=== PATIENT | female | born 1985 | race Caucasian/White ===

== ENCOUNTER 2017-11-23 05:30 | Inpatient (IN) | payer OTHER, SELFPAY ==
[2017-11-20 12:00] VITALS: BMI 28.0
[2017-11-23] VITALS (14 sets, daily range): BP systolic 103–126; BP diastolic 54–78; PULSE 81–106; RESP 14–20; TEMP 36.3–37.4; O2SAT 95–98; BMI 28.0
[2017-11-23] MEDS: Lactated Ringers 1,000 ML 999 ML IV (06:30)
[2017-11-23 06:34] LABS: Hematocrit 37.8 % (37-47); Hemoglobin 13.1 g/dl (12.0-15.0); Mean Corp Hgb Conc 34.7 g/gl (32-36); Mean Corpuscular Hgb 31.8 pg (27.0-32.0); Mean Corpuscular Volume 91.7 fL (81-99); RBC Distribution Width CV 13.4 % (11.6-14.6); Red Blood Count 4.12 M/mm3 (4.2-5.4); White Blood Count 10.2 K/mm3 (4.4-11.0)
[2017-11-23 06:35] LABS: Basophil# 0.02 X10^3/uL; Basophil% 0.2 % (0-1); Eosinophil# 0.11 X10^3/uL; Eosinophils% 1.1 % (0-5); Lymphocyte % 20.6 % (19-41); Mean Platelet Vol. 10.4 fl (6.2-12.0); Monocyte# 0.85 X10^3/uL; Monocyte% 8.3 % (0-10); Neutrophil # 7.04 X10^3/uL (2.7-7.7); Neutrophil % 69.2 % (47-70); POSITIVE COUNT NO; POSITIVE DIFFERENTIAL NO; POSITIVE MORPHOLOGY NO; Platelet Count 196 K/mm3 (150-450); RBC Distribution Width SD 43.8 fl (35.1-43.9)
[2017-11-23] MEDS: Sodium Citrate/Citric Acid 30 ML UDC PO (07:12)
[2017-11-23] MEDS: Lactated Ringers 1,000 ML 150 ML IV (07:21)
[2017-11-23] MEDS: Cefazolin 2 GM in 0.9% Normal Saline 100 ML IV (07:22)
[2017-11-23] MEDS: Oxytocin 30 units/NS 500 ml 30 UNITS/500 ML IV.SOLN 167 UNITS IV (07:41)
--- NOTE | 2017-11-23 08:00 | PCM.OB.CSR ---
Delivery Classification: Scheduled Final CODY: 11/30/17 Final CODY Source: US <20 weeks Gestational age: 39 Weeks and 0 Days Indications: Patient with Chiari malformation- Scheduled repeat cs at 39 weeks with General anesthesia Indications for : Repeat Elective Description of Procedure: Surgeon: Dr. Willow Alberto Card Mounter: Dr. Emil Adams Second dental assistant medical assistant: CATHY Amos Procedure performed: Repeat section Anesthesia: General Preoperative diagnosis: Term gestation 39 weeks gestation for an elective repeat section Postoperative Diagnosis: same- live female Findings: Live female infant born without complication. Nuchal ?1 loose. clear meconium fluid. . Normal tubes and ovaries bilaterally. EBL: 600cc Implantable devices: None Operative note: After informed consent was obtained the patient was taken to the operating room sHe was placed in the supine position. She was then prepped and draped in normal sterile fashion and rincon catheter was placed. General anesthesia was then given. Next, skin incision was made with a scalpel in a Pfannenstiel fashion. It was carried down to the underlying layer of the fascia. Fascia was then incised midline with scapel and extended laterally using curved akhtar. 2 straight [place]'s were placed in the superior aspect of the fascial edge and the rectus muscles were dissected off sharply. Attention was then turned to the inferior aspect where again the fascial edge was grasped with 2 straight Shanti clamps tented up and the rectus muscle dissected off sharply. At this time the rectus muscles were seperated in the midline bluntly. Using blunt force the peritoneum was then entered. At this time the vesicouterine peritoneum was identified. Uterine incision was made in a low transverse fashion with the scalpel and then entered bluntly. Gentle opposing traction was placed to extend the uterine incision. The membranes were ruptured amniotic fluid clear. Infant's head was then brought to the uterine incision was delivered atraumatically followed by the rest infant's body. Cord was clamped and cut and mouth and nose were suctioned. was then handed to the waiting nursery team. The placenta was then removed with gentle traction. The uterus was removed from the intra-abdominal cavity is wrapped in a moist lap. He was cleared of all clots and debris using a moist lap. Ring clamps were placed on the uterine angles. #1 Vicryl suture was used in a running locked fashion for the first layer. Followed by second imbricating layer with #1 Vicryl. At this time then the uterus was placed back into abdominal cavity uterine incision was evaluated and noted to be of good hemostasis. Tubes and ovaries were evaluated they were normal. Great hemostasis was appreciated at this time the uterine incision was again evaluated good hemostasis was appreciated. Jessika was placed. The peritoneum was grasped with Kellys. Peritoneum was reapproximated using #2 Vicryl suture in a running fashion. Jessika was placed. The fascia was then reapproximated using #1 Vicryl in a running fashion. Subcutaneous layer was evaluated and Bovie was used for any small oozing that was noted per #2-0 plain gut suture was then used to reapproximate the subcutaneous layer and jessika was placed. 4-0 monocryl was used to reapproximate the skin in a subcutaneous fashion. Dry sterile dressing was applied. Instrument lap needle count were correct ?2. Anticipated normal postoperative course for this patient. Amniotic Membrane Rupture Type: Artificial Amniotic Fluid Description: Clear Placenta Disposition: [facility] Drain: Rincon to straight drain Cord Entanglement: Around neck x 1, loose Nuchal Cord Compression: Without compression Cord Vessel Description: 3 Vessels Esitmated Blood Loss (ml): 600 Gender: Female (1 minute): 8 (5 minute): 9 Delayed cord clamping: No Pre-op Antibiotic Given: Ancef 2 grams IV x1 Pt instructed on risks of surgery: Bleeding, Anesthesia Risks, Infection, Injury to surrounding structure(s) including bowel and bladder Complications: None - Admit VTE Documentation VTE Present on Admission: Yes VTE Mechan Device Prophylaxis: SCD's VTE Pharm Prophylaxis ordered?: No
--- NOTE | 2017-11-23 08:10 | OP.PCM_ITS ---
Delivery Classification: Scheduled Final CODY: 11/30/17 Final CODY Source: US <20 weeks Gestational age: 39 Weeks and 0 Days Indications: Patient with Chiari malformation- Scheduled repeat cs at 39 weeks with General anesthesia Indications for : Repeat Elective Description of Procedure: Surgeon: Dr. Willow Alberto Cup Trimming Machine Operator: Dr. Emil Adams Second care assistant: CATHY Amos Procedure performed: Repeat section Anesthesia: General Preoperative diagnosis: Term gestation 39 weeks gestation for an elective repeat section Postoperative Diagnosis: same- live female Findings: Live female infant born without complication. Nuchal ?1 loose. clear meconium fluid. . Normal tubes and ovaries bilaterally. EBL: 600cc Implantable devices: None Operative note: After informed consent was obtained the patient was taken to the operating room sHe was placed in the supine position. She was then prepped and draped in normal sterile fashion and rincon catheter was placed. General anesthesia was then given. Next, skin incision was made with a scalpel in a Pfannenstiel fashion. It was carried down to the underlying layer of the fascia. Fascia was then incised midline with scapel and extended laterally using curved akhtar. 2 straight [place]'s were placed in the superior aspect of the fascial edge and the rectus muscles were dissected off sharply. Attention was then turned to the inferior aspect where again the fascial edge was grasped with 2 straight Shanti clamps tented up and the rectus muscle dissected off sharply. At this time the rectus muscles were seperated in the midline bluntly. Using blunt force the peritoneum was then entered. At this time the vesicouterine peritoneum was identified. Uterine incision was made in a low transverse fashion with the scalpel and then entered bluntly. Gentle opposing traction was placed to extend the uterine incision. The membranes were ruptured amniotic fluid clear. Infant's head was then brought to the uterine incision was delivered atraumatically followed by the rest infant's body. Cord was clamped and cut and mouth and nose were suctioned. was then handed to the waiting nursery team. The placenta was then removed with gentle traction. The uterus was removed from the intra-abdominal cavity is wrapped in a moist lap. He was cleared of all clots and debris using a moist lap. Ring clamps were placed on the uterine angles. #1 Vicryl suture was used in a running locked fashion for the first layer. Followed by second imbricating layer with # 1 Vicryl. At this time then the uterus was placed back into abdominal cavity uterine incision was evaluated and noted to be of good hemostasis. Tubes and ovaries were evaluated they were normal. Great hemostasis was appreciated at this time the uterine incision was again evaluated good hemostasis was appreciated. Jessika was placed. The peritoneum was grasped with Kellys. Peritoneum was reapproximated using #2 Vicryl suture in a running fashion. Jessika was placed. The fascia was then reapproximated using #1 Vicryl in a running fashion. Subcutaneous layer was evaluated and Bovie was used for any small oozing that was noted per #2-0 plain gut suture was then used to reapproximate the subcutaneous layer and jessika was placed. 4-0 monocryl was used to reapproximate the skin in a subcutaneous fashion. Dry sterile dressing was applied. Instrument lap needle count were correct ?2. Anticipated normal postoperative course for this patient. Amniotic Membrane Rupture Type: Artificial Amniotic Fluid Description: Clear Placenta Disposition: [facility] Drain: Rincon to straight drain Cord Entanglement: Around neck x 1, loose Nuchal Cord Compression: Without compression Cord Vessel Description: 3 Vessels Esitmated Blood Loss (ml): 600 Infant Gender: Female (1 minute): 8 (5 minute): 9 Delayed cord clamping: No Pre-op Antibiotic Given: Ancef 2 grams IV x1 Pt instructed on risks of surgery: Bleeding, Anesthesia Risks, Infection, Injury to surrounding structure(s) including bowel and bladder Complications: None - Admit VTE Documentation VTE Present on Admission: Yes VTE Mechan Device Prophylaxis: SCD's VTE Pharm Prophylaxis ordered?: No
[2017-11-23] MEDS: Lactated Ringers 1,000 ML 100 ML IV (08:17)
[2017-11-23] MEDS: Ketorolac 30 MG/ML Syringe IV ×2 (13:59→19:51)
[2017-11-23] MEDS: 0.9% Saline Lock 10 ML Syringe IV (17:26)
[2017-11-23] MEDS: HYDROmorphone 1 MG/ML Syringe IV (17:34)
[2017-11-24] MEDS: oxyCODONE 5 MG Tablet PO ×3 (00:02→19:24)
[2017-11-24 00:05] VITALS: BP 108/47; PULSE 82; RESP 16; TEMP 37.2; O2SAT 96
[2017-11-24] MEDS: Ketorolac 30 MG/ML Syringe IV ×4 (02:14→20:15)
[2017-11-24 04:45] VITALS: BP 109/57; PULSE 92; RESP 16; TEMP 36.8; O2SAT 97
[2017-11-24] MEDS: 0.9% Saline Lock 10 ML Syringe IV ×4 (05:19→20:15)
[2017-11-24 06:06] LABS: Hematocrit 34.8 % (37-47); Hemoglobin 11.8 g/dl (12.0-15.0); Mean Corp Hgb Conc 33.9 g/gl (32-36); Mean Corpuscular Volume 91.3 fL (81-99); Mean Platelet Vol. 9.5 fl (6.2-12.0); Platelet Count 178 K/mm3 (150-450); RBC Distribution Width CV 13.6 % (11.6-14.6); RBC Distribution Width SD 44.8 fl (35.1-43.9); Red Blood Count 3.81 M/mm3 (4.2-5.4); White Blood Count 13.4 K/mm3 (4.4-11.0)
[2017-11-24 06:07] LABS: Scan Indicated on CBC? Y/N NO
[2017-11-24 07:50] VITALS: BP 117/53; PULSE 104; RESP 20; TEMP 36.9; O2SAT 97
--- NOTE | 2017-11-24 08:07 | PCM.PN.OB ---
Subjective: pt seen at bedside, doing well. pt reports good pain control. lochia mild. Breast feeding. Pt reports + flatus. Rincon catheter still in place. pt tolerating regular diet. denies N/V, CP, SOB, dizziness. - Physical Exam General: Alert, Oriented x3 Abdomen: Soft, Non-Distended, - - fundus firm. incision dressing dry and intact. Extremities: No Calf Tenderness Vital Signs Temp Pulse Resp BP Pulse Ox 98.3 F 92 16 109/57 L 97 11/24/17 04:45 11/24/17 04:45 11/24/17 04:45 11/24/17 04:45 11/24/17 04:45 Oxygen Delivery Method Room Air Weight: 81.3 kg Body Mass Index (BMI) 28.0 Intake and Output for Last 24 Hours 11/22/17 11/23/17 11/24/17 23:59 23:59 23:59 Intake Total 2613 / 2613 270 / 270 Output Total 3550 / 3550 1300 / 1300 Balance -937 / -937 -1030 / -1030 Laboratory Tests Past 24 Hrs 11/23/17 11/24/17 06:50 05:25 WBC 13.4 H RBC 3.81 L Hgb 11.8 L Hct 34.8 L MCV 91.3 MCH 31.0 MCHC 33.9 RDW 13.6 RDW Differential 44.8 H Plt Count 178 MPV 9.5 Blood Type AB POSITIVE Antibody Screen NEGATIVE Medical Necessity - Tobacco Use Smoking Status: Never smoker Assessment/Plan POD#1, doing well routine care pain mgmt dc rincon vs and labs reviewed- stable
--- NOTE | 2017-11-24 08:12 | DCINST_ITS ---
Discharge Diet: No Restrictions Discharge Activity: Return to Normal Activity, May Not Drive - for 2 weeks, May not drive while taking narcotic pain medications., May Shower, May Take a Tub Bath - in 7 days. May resume sexual activity in: 4-6 weeks Lifting Restrictions: 20 pounds Additional Activity Instructions:: Nothing in the vagina for 4-6 weeks. You may return to work/school in 6 weeks. Call your doctor if your incision/area has: Continuous Slow Oozing, Sudden Increased Bleeding, Increased Pain/ Swelling, Increased Redness, Foul Smelling Discharge Call your doctor if you observe: Fever of 101 or Higher, Using more than one pad per hour - for 2 hours Suture Line Care: Avoid Pulling/Pushing, Avoid Pinching/Bending Cleanse incision/area with: Keep Dressing Clean & Dry Additional Instructions: If you experience any of the following, contact your healthcare provider. * Bleeding that soaks a pad every hour for 2 hours * Fever 100.4 or higher * Unrelieved incision or abdominal pain * Swelling, redness, discharge or bleeding from your incision or episiotomy site * Your incision begins to separate * Problems urinating (including inability to urinate or burning while urinating) . * Visual changes * Severe headache * Flu-like symptoms * Pain or redness in one of both of your breasts * Pain, warmth, tenderness or swelling in your legs, especially the calf area * Frequent nausea and vomiting * Symptoms of depression or anxiety If you experience any of the following, call 911 or go to the nearest Emergency Room. * Chest pain * Problems breathing * Seizure activity * Partial or complete paralysis of a body part, slurred speech, weakness or drooping of the face, or a sudden inability to walk or hold your balance Allergies/Adverse Reactions: Allergies No Known Allergies Allergy (Verified 11/23/17 07:28) Medications to take at Discharge Vits [Prenatabs FA ] 1 tablet PO DAILY 01/06/15 Naproxen [Naprosyn] 250 - 500 mg PO Q8H PRN PRN #60 tab 11/24/17 Oxycodone HCl/Acetaminophen [Percocet 5/325] 1 tablet PO Q6H PRN PRN 7 Days #28 tablet 11/24/17 Senna/Docusate Sodium [Senokot-S] 1 tab PO DAILY PRN #30 tab 11/24/17 SimETHICONE [Mylicon] 80 mg PO PCHS PRN #30 tab 11/24/17 The following prescriptions were given: Oxycodone HCl/Acetaminophen [Percocet 5/325] 1 tablet PO Q6H PRN PRN 7 Days #28 tablet PRN Reason: Pain Naproxen [Naprosyn] 250 - 500 mg PO Q8H PRN PRN #60 tab PRN Reason: Mild Pain (-11/03) Senna/Docusate Sodium [Senokot-S] 1 tab PO DAILY PRN #30 tab PRN Reason: Constipation SimETHICONE [Mylicon] 80 mg PO PCHS PRN #30 tab PRN Reason: Indigestion/stomach pain Follow-Up: Call to make an appointment with your doctor for an incision check in 1-2 weeks. You will also need a 6 week post- follow up appointment. Please Follow Up With: Willow Alberto MD - Call to make an appointment for an incision check in 1-2 [phone] When: You will need a post- check in 6 weeks. Primary Care Physician: Wolf Garcia III, MD [Primary Care Provider] -
[2017-11-24] MEDS: BENZOCAINE/MENTHOL 1 LOZENGE MUCOUS MEM (12:42)
[2017-11-24] MEDS: Senna/Docusate Sodium 1 Tablet PO (14:29)
[2017-11-24 15:45] VITALS: BP 111/66; PULSE 75; RESP 18; TEMP 36.4; O2SAT 99
[2017-11-24 20:10] VITALS: BP 109/68; PULSE 85; RESP 18; TEMP 36.7; O2SAT 98
[2017-11-25] MEDS: Ketorolac 30 MG/ML Syringe IV (01:56)
[2017-11-25] MEDS: 0.9% Saline Lock 10 ML Syringe IV (01:56)
[2017-11-25 02:00] VITALS: BP 104/64; PULSE 85; RESP 16; TEMP 36.7
--- NOTE | 2017-11-25 06:58 | PCM.PN.OB ---
Subjective: pt seen at bedside, doing well. pt reports good pain control. Lochia mild. Breast feeding. No CP, SOB, dizziness. - Physical Exam General: Alert, Oriented x3 Abdomen: Soft, Non-Distended, Passing Flatus, - - fundus firm . incision site dry and intact Extremities: No Calf Tenderness Vital Signs Temp Pulse Resp BP Pulse Ox 98.0 F 85 16 104/64 98 11/25/17 02:00 11/25/17 02:00 11/25/17 02:00 11/25/17 02:00 11/24/17 20:10 Oxygen Delivery Method Room Air Weight: 81.3 kg Body Mass Index (BMI) 28.0 Intake and Output for Last 24 Hours 11/23/17 11/24/17 11/25/17 23:59 23:59 23:59 Intake Total 2613 / 2613 270 / 270 Output Total 3550 / 3550 2200 / 2200 Balance -937 / -937 -1930 / -1930 Medical Necessity - Tobacco Use Smoking Status: Never smoker Assessment/Plan POD#2, doign well routine care [facility]
--- NOTE | 2017-11-25 07:00 | PCM.DC.BLA ---
Discharge Summary Date of Admission: 11/23/17 Date of Discharge: 11/25/17 Summary: Pt admitted for repeat scheduled LTCS on 11/23/17. Pt had uncomplicated Post op course. Discharged home on POD#2 11/26/17.
[2017-11-25 09:15] VITALS: BP 102/66; PULSE 94; RESP 20; TEMP 37.1; O2SAT 98
[2017-11-25] MEDS: oxyCODONE 5 MG Tablet PO (09:17)
[2017-11-25] MEDS: Senna/Docusate Sodium 1 Tablet PO (09:17)
== END 2017-11-25 12:00 | disposition home or self-care (01) | DRG 765 ==
PROVIDERS: Admitting Provider Obstetrics & Gynecology; Family Provider Family Medicine; PCP Family Medicine; Visit Provider Obstetrics & Gynecology
DX: O34.219 Maternal care for unspecified type scar from previous cesarean delivery (principal); O99.354 Diseases of the nervous system complicating childbirth; G93.5 Compression of brain; O69.81X0 Labor and delivery complicated by cord around neck, without compression, not applicable or unspecified; O77.0 Labor and delivery complicated by meconium in amniotic fluid; J45.909 Unspecified asthma, uncomplicated; Z3A.39 39 weeks gestation of pregnancy; Z37.0 Single live birth
CPT/HCPCS: 85025; 85027; 86850; 86900; 99218; J7120; A4216; G0378; J2405

== ENCOUNTER → 2021-01-05 16:32 | Outpatient (CLI) | payer OTHER, SELFPAY | PROVIDERS: PCP Family Medicine; Referring Provider Obstetrics & Gynecology; Visit Provider Obstetrics & Gynecology | DX: Z03.818 Encounter for observation for suspected exposure to other biological agents ruled out (principal) | CPT/HCPCS: 87635; C9803; U0002 ==

== ENCOUNTER 2021-01-10 05:15 | Inpatient (IN) | payer OTHER, SELFPAY ==
[2017-11-23 06:30] VITALS: BMI 28.0
--- NOTE | 2021-01-05 14:15 | PCM.HP.BLA ---
History and Physical Date of Admission: 01/10/21 HPI: The patient is a 35 year old female presenting for pre-operative visit. She is scheduled for , for 39 weeks , previous c/s on 01/10/21. Procedure discussed along with risks, benefits and complications. Other alternatives discussed for management. Consent form signed? Yes. ? ? PAST MEDICAL HISTORY PAST MEDICAL HISTORY Diagnosis Date ? Allergic rhinitis, cause unspecified ? ? Asthma ? ? athletic childhood asthma ? Chiari I malformation (HCC) 05/08/14 ? Chlamydia 2010 ? Enlarged pituitary gland (HCC) 04/17/2014 ? Unspecified asthma(493.90) ? ? ? PAST SURGICAL HISTORY PAST SURGICAL HISTORY Procedure Laterality Date ? ANESTH, SECTION ? ? ? DELIVERY ONLY ? 03/09/15 ? Primary C/S for Chiari I Malformation ? DELIVERY ONLY ? 11/23/2017 ? ? ? CURRENT MEDICATIONS Current Outpatient Medications Medication Sig Dispense Refill ? PNV no.95/ferrous fum/folic ac ( ORAL) Take by mouth. ? ? ? No current facility-administered medications for this visit. ? ? ALLERGIES: Cats and Dogs ? PERSONAL HISTORY: SOCIAL HISTORY Social History ? Tobacco Use ? Smoking status: Never Smoker ? Smokeless tobacco: Never Used Vaping Use ? Vaping Use: Never used Substance Use Topics ? Alcohol use: Yes ? ? Comment: socially, not while ? Drug use: No ? FAMILY HISTORY: FAMILY HISTORY FAMILY HISTORY Adopted: Yes Problem Relation Age of Onset ? Hypertension Mother ? ? Heart Father ? ? atrial fib ? Breast Cancer Maternal Grandmother ? ? Heart Maternal Grandmother ? ? Hypertension Maternal Grandfather ? ? Heart Paternal Grandmother ? ? Hypertension Paternal Grandmother ? ? other (Celina Gehrig disease) Paternal Grandfather ? ? other (MS) Paternal Aunt ? ? other (MS) Paternal Uncle ? ? ? REVIEW OF SYMPTOMS: GENERAL: denies fevers or chills ENDOCRINOLOGY: has not been on steroids Cardiology : denies palpitations or chest pain Respiratory: denies SOB or cough Hematology: denies history of prolonged bleeding or easy bruising or VTE Allergy: Denies history of personal or family history of allergy to anesthesia ? PHYSICAL EXAMINATION: ? VITALS: Last menstrual period 04/11/2020. ? GENERAL: The patient is well nourished, well hydrated in no acute distress. , The patient is oriented to time, place, and person. NECK: Supple. No lynphadenopathy, normal thyroid, no thyromegaly. LUNGS: Clear to auscultation bilaterally. no wheezes, rhonchi or rales HEART: Regular rate and rhythm, Normal heart sounds and No murmurs or gallops abd- soft, nontender, gravid ? IMPRESSION: .Estimated Date of Delivery: 01/16/21 for repeat c/s ? PLAN: The risks/benefits/alternatives and personal involved for the planned repeat c/s were reviewed with the patient. Her questions were answered to her satisfaction and she desires to proceed. Consent was signed. I reviewed with her postop instructions and expectations. ? ? I have reviewed and updated past medical and surgical history, medications and allergies This H&P was completed in my office on Assessment & Plan Assessment/Plan (1) Previous delivery affecting : (2) with 39 completed weeks gestation:
[2021-01-10] VITALS (18 sets, daily range): BP systolic 101–123; BP diastolic 48–73; PULSE 72–107; RESP 16–18; TEMP 36.2–36.8; O2SAT 96–99; BMI 30.7
[2021-01-10] MEDS: Lactated Ringers 1,000 ML 999 ML IV (05:40)
[2021-01-10] MEDS: Acetaminophen 500 MG Tablet 1000 MG PO ×3 (05:48→19:42)
[2021-01-10 06:03] LABS: Absolute Lymphocyte Count 1.82 X10^3/uL (0.83-4.51); Absolute Neutrophil Count 6.1 X10^3/uL (2.0-7.7); Basophil# 0.03 X10^3/uL; Basophil% 0.3 % (0-1); Eosinophils% 1.2 % (0-5); Hematocrit 38.3 % (37-47); Hemoglobin 12.7 g/dL (12.0-15.0); Lymphocyte # 1.82 X10^3/ul (0.83-4.51); Lymphocyte % 21.1 % (19-41); Mean Corp Hgb Conc 33.2 g/dL (32-36); Mean Corpuscular Volume 90.5 fL (81-99); Mean Platelet Vol. 9.9 fl (6.2-12.0); Monocyte# 0.55 X10^3/uL; Monocyte% 6.4 % (0-10); NRBC Flagged by Analyzer 0 % (0-5); Neutrophil # 6.06 X10^3/uL (2.7-7.7); Neutrophil % 70.2 % (47-70); Platelet Count 200 K/mm3 (150-450); RBC Distribution Width CV 13.5 % (11.6-14.6); RBC Distribution Width SD 44.2 fl (35.1-43.9); Red Blood Count 4.23 M/mm3 (4.2-5.4); White Blood Count 8.6 K/mm3 (4.4-11.0)
[2021-01-10] MEDS: Sodium Citrate/Citric Acid 30 ML UDC PO (06:41)
[2021-01-10] MEDS: Lactated Ringers 1,000 ML 150 ML IV (06:41)
[2021-01-10] MEDS: Cefazolin 2 GM in 0.9% Normal Saline 100 ML IV (07:20)
--- NOTE | 2021-01-10 08:10 | OP.PCM_ITS ---
Assessment & Plan (1) delivery delivered: (2) Single live : (3) with 39 completed weeks gestation: Maternal Data Information Final CODY: 01/16/21 Final CODY Source: US <20 weeks Gestational age: 39 09/02 Details Operative Information Date of Procedure: 01/10/21 Pre-Operative Diagnosis: previous c/s, maternal chiari malformation, 39 weeks Post-Operative Diagnosis: same Classification: Scheduled Procedure Type: low transverse legal paraprofessional #1: Alma Rosa Bruno Type of Anesthesia: General Anesthesiologist: Patel Urrutia Special Medications: none Antibiotic Given: Ancef 2 grams IV x1 Drain: Combs to straight drain Estimated Blood Loss: 700 Fluids Replaced: 1200 Procedure Start Time: 07:36 Procedure Stop Time: 08:08 Time of Delivery: 07:38 Findings Description of Procedure: The patient was taken to the operating room. She was prepped and draped in the dorsal supine position with a leftward tilt. A P fannenstiel skin incision was made approximately 2 cm above the symphysis pubis and carried through to underlying layer fascia with the scalpel. The fascia was incised incised in the midline and extended laterally with the Woo scissors. The fascia was dissected off the rectus muscles with blunt and sharp dissection. The rectus muscles were in the midline and the peritoneum was entered bluntly. The peritoneal incision was stretched and the bladder blade was placed. The uterine incision was made in a low transverse fashion with the scalpel and extended superiorly and inferiorly with blunt dissection. The amniotic membranes were ruptured bluntly and clear amniotic fluid returned. The infant's head was brought to the incision in the flexed position and delivered without difficulty. The remainder of the was delivered with gentle traction and fundal pressure in the standard fashion. The mouth and nares were bulb suctioned. The cord was clamped and cut as the infant was stimulated. Cord clamping was delayed. The infant was handed off to the waiting nursing staff. The placenta was delivered with fundal massage and gentle traction in the standard fashion. The uterus was exteriorized and cleared of all clots and debris. The cervix was dilated with a ring forcep. The uterine incision was closed with #1 Vicryl in a running locked fashion. A second layer of the same suture was used in an imbricating fashion. The incision was examined and was found to be hemostatic. The uterus was placed back into the peritoneal cavity and hemostasis was again confirmed. The rectus muscles were examined and any bleeding was Bovie cauterized. The parietal peritoneum and rectus muscles were closed en bloc with an 0 Vicryl running suture. The surgical teams outer gloves were then changed. The rectus fascia was examined and any bleeding was Bovie cauterized and the rectus fascia was closed with 1 Vicryl suture in a running standard fashion. The subcutaneous tissue was examining and any bleeding was Bovie cauterized. The skin was closed in a subcuticular fashion by the VICTIM ADVOCATE with me present in the labor and delivery suite. I performed the remainder of the procedure with assistance. All sponge, lap, and needle counts were correct. The patient was taken to her room for recovery in a stable condition. Presentation: Positive for Vertex Amniotic Membrane Rupture Type: Spontaneous Amniotic Fluid Description: Clear Placental Delivery Description: Spontaneous Cord Vessel Description: 3 Vessels Cord Entanglement: None Infant A Gender: Female (Mer[place]) (1 minute): 8 (5 minute): 9 Delayed Cord Clamping: Yes Complications Complications: none Admit VTE Documentation VTE Present on Admission: No VTE Mechan Device Prophylaxis: SCD's VTE Pharm Prophylaxis Ordered: No Reason Prophylaxis Not Ordered: Procedure Not Indicated
[2021-01-10] MEDS: Ketorolac 30 MG/ML Syringe IV ×3 (08:35→21:34)
[2021-01-10] MEDS: Oxytocin 30 units/NS 500 ml 30 UNITS/500 ML IV.SOLN 167 UNITS IV (08:35)
[2021-01-10] MEDS: Lactated Ringers 1,000 ML 100 ML IV (11:50)
[2021-01-10] MEDS: 0.9% Saline Lock 10 ML Syringe IV ×2 (19:42→21:33)
[2021-01-11] MEDS: Acetaminophen 500 MG Tablet 1000 MG PO ×3 (01:52→14:05)
[2021-01-11] MEDS: Ketorolac 30 MG/ML Syringe IV (03:42)
[2021-01-11] MEDS: 0.9% Saline Lock 10 ML Syringe IV (03:43)
[2021-01-11 03:53] VITALS: BP 109/55; PULSE 84; RESP 16; TEMP 36.4
[2021-01-11 06:09] LABS: Hematocrit 32.5 % (37-47); Hemoglobin 10.9 g/dL (12.0-15.0); Mean Corp Hgb Conc 33.5 g/dL (32-36); Mean Corpuscular Hgb 30.8 pg (27.0-32.0); Mean Corpuscular Volume 91.8 fL (81-99); Mean Platelet Vol. 9.6 fl (6.2-12.0); Platelet Count 164 K/mm3 (150-450); RBC Distribution Width CV 13.6 % (11.6-14.6); RBC Distribution Width SD 45.7 fl (35.1-43.9); Red Blood Count 3.54 M/mm3 (4.2-5.4); White Blood Count 10.6 K/mm3 (4.4-11.0)
[2021-01-11] MEDS: Senna/Docusate Sodium 1 Tablet PO (07:59)
--- NOTE | 2021-01-11 08:59 | PCM.PN.OB ---
Subjective Subjective patient seen at bedside, doing well. Patient reports good pain control. lochia mild. voiding without difficutly. tolerating regular diet. Objective Data Objective Data Vital Signs: Vital Signs Temp Pulse Resp BP Pulse Ox 97.5 F L 84 16 109/55 L 99 01/11/21 03:53 01/11/21 03:53 01/11/21 03:53 01/11/21 03:53 01/10/21 17:48 Oxygen Delivery Method Room Air Weight: 86.183 kg Body Mass Index (BMI) 30.7 Intake & Output: Intake and Output for Last 24 Hours 01/09/21 01/10/21 01/11/21 23:59 23:59 23:59 Intake Total 4194 / 4194 800 / 800 Output Total 800 / 800 2400 / 2400 Balance 3394 / 3394 -1600 / -1600 Lab / Micro Data Result Diagrams: 01/11/21 06:00 Labs: Laboratory Results - last 24 hr 01/11/21 06:00 WBC 10.6 RBC 3.54 L Hgb 10.9 L Hct 32.5 L MCV 91.8 MCH 30.8 MCHC 33.5 RDW Std Deviation 45.7 H RDW Coeff of Chris 13.6 Plt Count 164 MPV 9.6 Assessment & Plan (1) delivery delivered: PLAN: POD#1 , Doing well Routine care pain mgmt monitor VS ambulation
[2021-01-11 10:23] VITALS: BP 119/70; PULSE 96; RESP 16; TEMP 36.8; O2SAT 96
[2021-01-11] MEDS: oxyCODONE 5 MG Tablet PO (10:35)
[2021-01-11 14:00] VITALS: BP 111/63; PULSE 73; RESP 16; TEMP 36.3; O2SAT 97
--- NOTE | 2021-01-11 15:12 | PCM.DC ---
Discharge Instructions Diet Discharge Diet: No restrictions Activity Discharge Activity: May not drive while taking narcotic pain medications. and May Shower May resume sexual activity in: 6-8 weeks Lifting Restrictions: 25 Dressing / Incision Call your doctor if your incision/area has: Continuous Slow Oozing, Sudden Increased Bleeding, Increased Pain/ Swelling, Increased Redness, Foul Smelling Discharge and Swelling at the incision site Call your doctor if you observe: Fever of 101 or Higher, Inability to urinate, Using more than one pad per hour and Uncontrolled pain Additional Dressing/Incision Instructions:: remove dressing at 7 days post op- if it becomes saturated prior to that time you may remove it. Let soap and water run over incision sites and dab dry. keep incision clean and dry. Follow Up Care Please Follow Up With: Willow Alberto MD When: 1-2 weeks post of incision check and again at 6 weeks post . [phone] Test Results: Test results from this visit will be discussed in further detail at your follow-up appointment, if applicable. Discharge Plan Admission Admit Date/Time: 01/10/21 05:15 Attending Provider: Olga Tejeda Primary Care Provider: Wolf Garcia III Instructions Forms: Information Discharge Orders/Prescriptions Prescriptions: New acetaminophen 500 mg Tablet 1,000 mg PO Q6 Qty: 60 RF: 0 naproxen 500 mg Tablet 500 mg PO Q8H Qty: 60 RF: 0 simethicone [Mi-Acid Gas Relief(simethicon)] 80 mg Tablet,Chewable 80 mg PO PCHS PRN (Reason: Indigestion/stomach pain) Qty: 20 RF: 0 oxycodone 5 mg Tablet 5 - 10 mg PO 4X/DAY PRN PRN (Reason: Pain Score 4-10) 5 Days Qty: 10 RF: 0 Continued Prenatabs FA 1 TABLET tablet 1 tab PO DAILY RF: 0 Referrals / Follow Up: Wolf Garcia III, MD [Primary Care Provider] -
[2021-01-11] MEDS: Naproxen 250 MG Tablet 500 MG PO (17:00)
== END 2021-01-11 17:30 | disposition home or self-care (01) | DRG 788 ==
PROVIDERS: Admitting Provider Obstetrics & Gynecology; PCP Family Medicine; Visit Provider Obstetrics & Gynecology
PROC: 10D00Z1 Extraction of Products of Conception, Low, Open Approach (ICD-10-PCS; CPT 59514; principal; 2021-01-10 07:15)
DX: O34.211 Maternal care for low transverse scar from previous cesarean delivery (principal); O99.52 Diseases of the respiratory system complicating childbirth; J45.909 Unspecified asthma, uncomplicated; Z3A.39 39 weeks gestation of pregnancy; Z37.0 Single live birth
CPT/HCPCS: 85025; 85027; 86850; 86900; 86901; 99218; J7120; A4216; G0378; J2405

== ENCOUNTER → 2025-02-10 | Outpatient (CLI) | payer OTHER, SELFPAY ==
--- OUTSIDE RECORDS SUMMARY | 2025-02-10 07:42 | XMS RPT_ITS | CCD ---
Author Organization [facility] Inform ion Partnership [facility] Care Team Providers Care Credit Rating Inspector Name Role Phone Cee Guerra MD Primary Care Provider Abhishek Charles Attending Unavailable Guerita MOLD WASHER, Zafar Colon Attending Unavailable Cee Guerra MD Primary Care Provider T[place]hof SOCIAL SERVICE DIRECTOR.Felicita ALFREDO Unavailable Chi SOCIAL SERVICE DIRECTOR.Miguel ALFREDO Unavailable [phone] AYLA ALVES Attending Unavailable CEE GUERRA Primary Care Unavailable SAMUEL HART Attending Unavailable SELF Referring Unavailable CEE GUERRA Primary Care Unavailable NARCISA MORALES Attending Unavailable CEE GUERRA Primary Care Unavailable CEE GUERRA Referring Unavailable CEE GUERRA Primary Care Unavailable FELICITA VIRGEN Attending Unavailabl CEE [place] Primary Care Unavailable Param SOCIAL SERVICE DIRECTOR.Felicita ALFREDO Unavailable Allergies Allergy Classification Reported Allergen(s) Allergy Type Date of Onset Reaction(s) Facility (14 sources) Cat; Translations: [CATS] Propensity to adverse reactions 07-19-[address] [facility] (14 sources) Dog; Translations: [DOGS] Propensity to adverse reactions 07-19-[address] [facility] Medications Current Medications Medication Drug Class(es) Dates Sig (Normalized) Sig (Original) Ethinyl Estradiol / norgestimate (18 sources) Progestin, Estrogen Start: 05-23-2024 take 1 tablet by mouth once daily norgestimate 0.25 mg-ethinyl estradiol 35 mcg 0.25-35 mg-mcg per tablet Indications: Surveillance for control, oral contraceptives Take 1 tablet by mouth once daily. 84 tablet 3 05/23/2024 Active Start: 05-09-2024 End: 05-23-2024 take 1 tablet by mouth once daily norgestimate 0.25 mg-ethinyl estradiol 35 mcg 0.25-35 mg-mcg per tablet Indications: Surveillance for control, oral contraceptives Take 1 tablet by mouth once daily. 84 tablet 05/09/2024 05/23/2024 Discontinued Start: 05-09-2024 take 1 tablet by ronaldo th once daily norgestimate 0.25 mg-ethinyl estradiol 35 mcg 0.25-35 mg-mcg per tablet Indications: Surveillance for control, oral contraceptives Take 1 tablet by mouth once daily. 84 tablet 05/09/2024 Active Start: 04-13-2023 End: 05-09-2024 take 1 tablet by mouth once daily norgestimate 0.25 mg-ethinyl estradiol 35 mcg 0.25-35 mg-mcg per tablet Indications: Surveillance for control, oral contraceptives Take 1 tablet by mouth once daily. 84 tablet 3 04/13/2023 05/09/2024 Discontinued Start: 04-13-2023 take 1 tablet by ronaldo th once daily norgestimate 0.25 mg-ethinyl estradiol 35 mcg 0.25-35 mg-mcg per tablet Indications: Surveillance for control, oral contraceptives Take 1 tablet by mouth once daily. 84 tablet 3 04/13/2023 Active Start: 03-20-2023 End: 04-13-2023 take 1 tablet by mouth once daily norgestimate 0.25 mg-ethinyl estradiol 35 mcg 0.25-35 mg-mcg per tablet Take 1 tablet by mouth once daily. 84 tablet 0 03/20/2023 04/13/2023 Discontinued Start: 03-20-2023 take 1 tablet by ronaldo th once daily norgestimate 0.25 mg-ethinyl estradiol 35 mcg 0.25-35 mg-mcg per tablet Take 1 tablet by mouth once daily. 84 tablet 0 03/20/2023 Active Start: 12-25-2022 End: 03-20-2023 take 1 tablet by mouth once daily norgestimate 0.25 mg-ethinyl estradiol 35 mcg 0.25-35 mg-mcg per tablet take 1 tablet by mouth once daily 84 tablet 0 12/25/2022 03/20/2023 Discontinued Start: 10-02-2022 take 1 tablet by ronaldo th once daily norgestimate 0.25 mg-ethinyl estradiol 35 mcg (SPRINTEC, ORTHO-CYCLEN) 0.25-35 mg-mcg per tablet take 1 tablet by mouth once daily 84 tablet 0 10/02/2022 Active Start: 07-10-2022 End: 10-02-2022 take 1 tablet by mouth once daily norgestimate 0.25 mg-ethinyl estradiol 35 mcg (SPRINTEC, ORTHO-CYCLEN) 0.25-35 mg-mcg per tablet take 1 tablet by mouth once daily 84 tablet 0 07/10/2022 10/02/2022 Discontinued Comment on above: take 1 tablet by ronaldo th once daily Take 1 tablet by ronaldo th once daily. sertraline 25 mg oral tablet (4 sources) Serotonin Reuptake Inhibitor Start: 11-01-19 take 1 tablet by mouth once daily sertraline (ZOLOFT) 25 mg tablet Indications: Anxiety with depression Take 1 tablet by mouth once daily. 30 tablet 1 10/31/2024 Active traZODone hydrochloride 50 mg oral tablet (4 sources) Serotonin Reuptake Inhibitor Start: 11-01-19 take 1 tablet by mouth once daily at bedtime traZODone (DESYREL) 50 mg tablet Indications: Anxiety with depression Take 1 tablet by mouth daily at bedtime. 30 tablet 1 10/31/2024 Active valACYclovir 1000 mg oral tablet (2 sources) Herpesvirus Nucleoside Analog DNA Polymerase Inhibitor, Herpes Simplex Virus Nucleoside Analog DNA Polymerase Inhibitor, Herpes Zoster Virus Nucleoside Analog DNA Polymerase Inhibitor Start: 05-09-20 End: 05-16-20 24 take 1 tablet by mouth three times daily valACYclovir (VALTREX) 1 gram tablet Take 1 tablet by mouth three times a day for 7 days. 21 tablet 05/09/2024 05/16/2024 Active Completed/Discontinued Medications Medication Drug Class(es) Dates Sig (Normalized) Sig (Original) PNV no.95/ferrous fum/folic ac ( ORAL) (4 sources) End: 04-13-2023 PNV no.95/ferrous fum/folic ac ( ORAL) Take by mouth. 0 04/13/2023 Discontinued PNV no.95/ferrou s fum/folic ac ( ORAL) Take by mouth. 0 Active Comment on above: Take by mouth. Problems Active Problems Problem Classification Problem Date Documented Date Episodic/Chronic Anxiety disorders (2 sources) Mixed anxiety and depressive disorder; Translations: [Other specified anxiety disorders] Onset: 10-31-2024 10-31-2024 Chronic Cardiac dysrhythmias (2 sources) Supraventricular tachycardia; Translations: [SVT (supraventricular tachycardia) (HCC)] 01-28-2025 Chronic Immunizations and screening for infectious disease (6 sources) Patient encounter status; Translations: [Encounter for screening for human papillomavirus (HPV)] Onset: 12-22-2024 04-13-2023 Episodic Other endocrine disorders (13 sources) Pituitary gland enlarged; Translations: [Other disorders of pituitary gland] Onset: 04-17-2014 03-10-2015 Chronic Other female genital disorders (1 source) Vaginal discharge; Translations: [Other specified noninflammatory disorders of vagina] 02-02-2025 Episodic Other female genital disorders (1 source) Other specified noninflammatory disorders of vagina; Translations: [Vaginal discharge] Onset: 02-02-2025 Episodic Other nervous system disorders (13 sources) Chiari malformation type I; Translations: [Compression of brain] Onset: 07-30-2014 04-02-2017 Chronic Other upper respiratory infections (1 source) Streptococcal pharyngitis; Translations: [Streptococcal pharyngitis] Onset: 01-09-2024 Episodic Past or Other Problems Problem Classification Problem Date Documented Date Episodic/Chronic Asthma (9 sources) Unspecified asthma, uncomplicated; Translations: [Asthma, unspecified type, unspecified] Resolved: 04-21-2015 04-21-2015 Chronic Bacterial infection; unspecified site (9 sources) Bacteria present; Translations: [Streptococcus, group B, as the cause of diseases classified elsewhere] Onset: 12-20-2020 Resolved: 01-17-2021 01-17-2021 Episodic Cardiac dysrhythmias (4 sources) Palpitations; Translations: [Palpitations] Onset: 10-25-2024 10-17-2024 Episodic Contraceptive and procreative management (5 sources) Oral contraception; Translations: [Encounter for surveillance of contraceptive pills] Onset: 05-23-2024 04-13-2023 Episodic Other complications of (9 sources) Group B Streptococcus carrier; Translations: [Streptococcus B carrier state complicating ] Onset: 05-01-2017 Resolved: 01-01-2018 01-01-2018 Episodic Other complications of (9 sources) Rubella non-immune; Translations: [Supervision of other high risk pregnancies, unspecified trimester] Onset: 08-17-2017 Resolved: 01-01-2018 01-01-2018 Episodic Other and delivery including normal (9 sources) Normal in primigravida; Translations: [Encounter for supervision of normal first , unspecified trimester] Onset: 07-30-2014 Resolved: 04-21-2015 04-21-2015 Episodic Other screening for suspected conditions (not mental disorders or infectious disease) (1 source) Encounter for screening for lipoid disorders; Translations: [Screening for lipid disorders] Onset: 10-25-2024 Episodic Other upper respiratory disease (9 sources) Allergic rhinitis; Translations: [Allergic rhinitis, unspecified] Resolved: 04-21-2015 04-21-2015 Chronic Screening and history of mental health and substance abuse codes (2 sources) Encounter for screening for depression; Translations: [Encounter for screening examination for other mental health and behavioral disorders] Onset: 10-31-2024 Episodic Results Test Name Value Interpretation Reference Range Facil ity BACTERIAL VAGINOSIS NAATon 0 02-02-2025 Interpretation and review of laboratory results Normal [facility] Lactobacillus crispatus+gasseri+je nsenii + Gardnerella vaginalis + Atopobium vaginae rRNA OTILIA+probe Ql (Vag fld) Not detected Not detected [facility] Lactobacillus crispatus+gasseri+je nsenii + Gardnerella vaginalis + Atopobium vaginae rRNA OTILIA+probe Ql (Vag fld) Not detected Normal Not detected [facility] Comment on above: Order Comment: Speci men Type: BLOOD SPECIMEN Ordering Facility: [facility] Address: [address] [place] [address] Performed By: #### 2 4331-1, 81096-8, 3016-3 #### [facility] CLIA [id number] [address] [place] [address] [place] [address] [place] ESTRELLA/TRICHOMONAS NAATon 0 02-02-2025 C. glabrata RNA OTILIA+probe Ql (Vag fld) Not detected Not detected [facility] Estrella sp DNA OTILIA+probe Ql (Vag fld) Detected Abnormal Not detected [facility] Comment on above: The Estrella species group target includes C. albicans, C. tropicalis, C. parapsilosis, and C. dubliniensis. Interpretation and review of laboratory results Abnormal [facility] T. vaginalis DNA OTILIA+probe Ql (Unsp spec) Not detected Not detected [facility] C. glabrata RNA OTILIA+probe Ql (Vag fld) Not detected Normal Not detected [facility] Comment on above: Order Comment: Speci men Type: BLOOD SPECIMEN Ordering Facility: [facility] Address: [address] [place] [address] Performed By: #### 2 4331-1, 36517-6, 3 #### [facility] CLIA [id number] [address] [place] [address] [place] Estrella sp DNA OTILIA+probe Ql (Vag fld) Detected Abnormal Not detected [facility] Comment on above: Order Comment: Speci men Type: BLOOD SPECIMEN Ordering Facility: [facility] Address: [address] [place] [address] Result Comment: The Estrella species group target includes C. albicans, C. tropicalis, C. parapsilosis, and C. dubliniensis. Performed By: #### 2 4331-1, 99856-3, 3 #### [facility] CLIA [id number] [address] [place] [address] [place] T. vaginalis DNA OTILIA+probe Ql (Unsp spec) Not detected Normal Not detected [facility] Comment on above: Order Comment: Speci men Type: BLOOD SPECIMEN Ordering Facility: [facility] Address: [address] [place] [address] Performed By: #### 2 4331-1, 69819-6, 3 #### [facility] CLIA [id number] [address] [place], [place] [id number] [place] CNOVon 02-02-2025 CNOV Office Visit (OBGYWM ) MALIHA IBARRA ([id number]) 1985 F NFR Date Time Provider Department 02/02/25 11:10 AM SAMUEL HART [place] During your visit today, we recorded the following information about you: Blood pressure Weight Last Period 100 63.2 kg 01/17/25 Samuel Hart MD 02/02/2025 11:51 AM Signed Batch And Furnace Manager offered: Patient declines. Maliha Ibarra is a 39 year old female who presents for problem visit - vaginal discharge. HPI: Vaginal discharge and itching for several days. Used Monistat 1 day with some relief in her symptoms, but symptoms have since returned. Sexually active. She has no concerns regarding STD. No other GI or symptoms. OB History Gravida3 Para3 Term3 Preterm0 AB0 Living3 SAB0 IAB0 Ectopic0 Multiple0 Live Births3 Senior Data Integration Developer History LMP: 01/17/2025 (Within Days), Having periods Age at Menarche: Age at First : Age at Menopause: Senior Data Integration Developer History Comments: Sexual Activity: Yes; Male Contraception: Pill PAST MEDICAL HISTORY Diagnosis Date Allergic rhinitis, cause unspecified Asthma ([facility]) athletic childhood asthma Chiari I malformation ([facility]) 05/08/14 Chlamydia 2010 Enlarged pituitary gland ([facility]) 04/17/2014 Unspecified asthma(493.90) PAST SURGICAL HISTORY Procedure Laterality Date ANESTH, SECTION DELIVERY ONLY 03/09/2015 Primary C/S for Chiari I Malformation DELIVERY ONLY 11/23/2017 DELIVERY ONLY 01/10/2021 LTCS TOOTH EXTRACTION Braddock teeth x four FAMILY HISTORY Adopted: Yes Problem Relation Age of Onset Hypertension Mother Heart Father atrial fib Breast Cancer Maternal Grandmother Heart Maternal Grandmother Hypertension Maternal Grandfather Heart Paternal Grandmother Hypertension Paternal Grandmother other (Celina Gehrig disease) Paternal Grandfather other (MS) Paternal Aunt other (MS) Paternal Uncle Social History Tobacco Use Smoking status: Never Smokeless tobacco: Never Vaping Use Vaping status: Never Used Substance Use Topics Alcohol use: Yes Comment: socially Drug use: Never Current Outpatient Medications Medication Sig sertraline (ZOLOFT) 25 mg tablet Take 1 tablet by mouth once daily. traZODone (DESYREL) 50 mg tablet Take 1 tablet by mouth daily at bedtime. norgestimate 0.25 mg-ethinyl estradiol 35 mcg 0.25-35 mg-mcg per tablet Take 1 tablet by mouth once daily. No current facility-administered medications for this visit. Allergies As of Date: 02/02/2025 Allergen Noted Reaction CATS 07/19/2005 DOGS 07/19/2005 Fully Assessed 02/02/2025 REVIEW OF SYSTEMS Expanded ROS: No fevers, chills, pelvic pain, nausea, vomiting. Allergies and current medication updated:Yes SENSITIVE EXAM: The sensitive examination was discussed with the Patient or Patient's Authorized Development Technical Lead. As applicable, any other physician, advance practice provider, medical student, or other health professional student that will be observing or involved in the sensitive examination for educational or training purposes was discussed with the Patient or Authorized Development Technical Lead. The Patient or Authorized Development Technical Lead has agreed to proceed with the sensitive examination. (Sensitive examination includes inspection and/or palpation of the breasts, pelvis, prostate and anorectal regions). EXAM: BP 100/68 Wt 139 lb 6.4 oz (63.2kg) LMP 01/17/2025 GENERAL: pleasant, female in no apparent distress HEENT: Normocephalic and atraumatic NECK: full range of motion CHEST: Normal inspiratory effort ABDOMEN: soft and non-tender PELVIC: external genitalia normal, normal Bartholin's glands, urethra, Blum[place]ard Colony's glands, no vulvar lesions, no cervical lesions, good vaginal support, physiologic discharge present, normal appearing perineal body and perianal region, non tender NEURO: exam grossly non-focal EXTREMITIES: normal ASSESSMENT AND PLAN: Assessment AND Plan Vaginal discharge Orders: BACTERIAL VAGINOSIS NAAT ESTRELLA/TRICHOMONAS NAAT Check BV, yeast. Reviewed vulvar care and hygiene measures. Patient desires Diflucan if yeast infection. Samuel Hart DO Medical Decision Making: Problems: Low: Acute, uncomplicated illness or injury Data: Unique test(s) ordered: 2 Medical Decision Making Level: 3 - Low Samuel Hart MD 02/02/2025 11:51 AM Signed Minimizing irritation of the vulva (area around the vagina) Wear white cotton underwear. Avoid synthetic fabrics and tight clothing. Sleep wearing shorts or pajama bottoms without underwear. Shower as soon as possible after exercise. Avoid clothing detergents and soaps with perfumes or dyes. Use warm (not hot) water to wash the vulva and if you use soap use a product designed for sensitive skin (like Dove or Cetaphil). Do not douche or use creams/powders in the vulvar area unless instructed by your physician. If you m (more content not included)... Normal [facility] BACTERIAL VAGINOSIS NAATon 0 12-22-2024 Lactobacillus crispatus+gasseri+je nsenii + Gardnerella vaginalis + Atopobium vaginae rRNA OTILIA+probe Ql (Vag fld) Not detected Normal Not detected [facility] Comment on above: Order Comment: Speci men Type: BLOOD SPECIMEN Ordering Facility: [facility] Address: [address] [place] [address] Performed By: #### 2 4331-1, 24616-4, 6-3 #### [facility] CLIA [id number] [address] [place] [address] [place] C. trachomatis+N. gonorrhoea e DNA OTILIA+probe Ql (Unsp spec)on 12-22-2024 C. trachomatis rRNA OTILIA+probe Ql (Unsp spec) Not detected Normal Not detected [facility] Comment on above: Order Comment: Speci men Type: BLOOD SPECIMEN Ordering Facility: [facility] Address: [address] [place] [address] Performed By: #### 2 4331-1, 74046-6, 3016-3 #### [facility] CLIA [id number] [address] [place] [address] [place] N. gonorrhoeae rRNA OTILIA+probe Ql (Unsp spec) Not detected Normal Not detected [facility] Comment on above: Order Comment: Speci men Type: BLOOD SPECIMEN Ordering Facility: [facility] Address: [address] [place] [address] Performed By: #### 2 4331-1, 38190-6, 3 #### [facility] CLIA [id number] [address] [place] [address] [place] ESTRELLA/TRICHOMONAS NAATon 0 12-22-2024 C. glabrata RNA OTILIA+probe Ql (Vag fld) Not detected Normal Not detected [facility] Comment on above: Order Comment: Speci men Type: BLOOD SPECIMEN Ordering Facility: [facility] Address: [address] [place] [address] Performed By: #### 2 4331-1, 89210-6, 3 #### [facility] CLIA [id number] [address] [place] [address] [place] Estrella sp DNA OTILIA+probe Ql (Vag fld) Detected Abnormal Not detected [facility] Comment on above: Order Comment: Speci men Type: BLOOD SPECIMEN Ordering Facility: [facility] Address: [address] [place] [address] Result Comment: The Estrella species group target includes C. albicans, C. tropicalis, C. parapsilosis, and C. dubliniensis. Performed By: #### 2 4331-1, , 3015-10 #### [facility] CLIA [id number] [address] [place] [address] [place] T. vaginalis DNA OTILIA+probe Ql (Unsp spec) Not detected Normal Not detected [facility] Comment on above: Order Comment: Speci men Type: BLOOD SPECIMEN Ordering Facility: [facility] Address: [address] [place] [address] Performed By: #### 2 4331-1, 24640-2, 3 #### [facility] CLIA [id number] [address] [place] [address] [place] CNOVon 12-22-2024 CNOV Office Visit (OBGYWM ) MALIHA IBARRA ([id number]) 1985 F NFR Date Time Provider Department 12/22/24 9:30 AM AYLA ALVES OBGYWJustin During your visit today, we recorded the following information about you: Blood pressure Weight Height Last Period 64.4 kg 1.702 m 11/25/24 Ayla Alves APRN.CN 12/22/2024 9:40 AM Signed Maliha Ibarra is a 39 year old female who presents for problem visit for STD testing HPI: Presents today with concerns for recent unprotected intercourse and would like STD screening. Having some vaginal irritation and wanted to get checked out. Declines testing for serum STD screening today. Taking OCP and no concerns for at this time. OB History Gravida3 Para3 Term3 Preterm0 AB0 Living3 SAB0 IAB0 Ectopic0 Multiple0 Live Births3 Senior Data Integration Developer History LMP: 11/25/2024 (Within Days), Having periods Age at Menarche: Age at First : Age at Menopause: Senior Data Integration Developer History Comments: Sexual Activity: Yes; Male Contraception: Pill PAST MEDICAL HISTORY Diagnosis Date Allergic rhinitis, cause unspecified Asthma ([facility]) athletic childhood asthma Chiari I malformation ([facility]) 05/08/14 Chlamydia 2010 Enlarged pituitary gland ([facility]) 04/17/2014 Unspecified asthma(493.90) PAST SURGICAL HISTORY Procedure Laterality Date ANESTH, SECTION DELIVERY ONLY 03/09/2015 Primary C/S for Chiari I Malformation DELIVERY ONLY 11/23/2017 DELIVERY ONLY 01/10/2021 LTCS TOOTH EXTRACTION [place]addock teeth x four FAMILY HISTORY Adopted: Yes Problem Relation Age of Onset Hypertension Mother Heart Father atrial fib Breast Cancer Maternal Grandmother Heart Maternal Grandmother Hypertension Maternal Grandfather Heart Paternal Grandmother Hypertension Paternal Grandmother other (Celina Gehrig disease) Paternal Grandfather other (MS) Paternal Aunt other (MS) Paternal Uncle Social History Tobacco Use Smoking status: Never Smokeless tobacco: Never Vaping Use Vaping status: Never Used Substance Use Topics Alcohol use: Yes Comment: socially Drug use: Never Current Outpatient Medications Medication Sig sertraline (ZOLOFT) 25 mg tablet Take 1 tablet by mouth once daily. traZODone (DESYREL) 50 mg tablet Take 1 tablet by mouth daily at bedtime. norgestimate 0.25 mg-ethinyl estradiol 35 mcg 0.25-35 mg-mcg per tablet Take 1 tablet by mouth once daily. No current facility-administered medications for this visit. Allergies As of Date: 12/22/2024 Allergen Noted Reaction CATS 07/19/2005 DOGS 07/19/2005 Fully Assessed 12/22/2024 REVIEW OF SYSTEMS Abdomen: No bloating, early satiety, indigestion, or increased flatulence. No abdominal pain, nausea, vomiting, diarrhea, or constipation. Bladder: No dysuria, gross hematuria, urinary frequency, urinary urgency, or incontinence. Breast: No breast lumps, nipple d/c, overlying skin changes, redness or skin retraction. Expanded ROS: N/A Allergies and current medication updated:Yes SENSITIVE EXAM: The sensitive examination was discussed with the Patient or Patient's Authorized Development Technical Lead. As applicable, any other physician, advance practice provider, medical student, or other health professional student that will be observing or involved in the sensitive examination for educational or training purposes was discussed with the Patient or Authorized Development Technical Lead. The Patient or Authorized Development Technical Lead has agreed to proceed with the sensitive examination. (Sensitive examination includes inspection and/or palpation of the breasts, pelvis, prostate and anorectal regions). EXAM: BP 112/70 Ht 5' 7 (1.70m) Wt 142 lb (64.4kg) LMP 11/25/2024 BMI 22.24 kg/(m2). GENERAL: pleasant, female in no apparent distress HEENT: Normocephalic and atraumatic NECK: Supple and full range of motion DERMATOLOGY: Normal and without lesions PELVIC: external genitalia normal, normal Bartholin's glands, urethra, Blumengard Colony's glands, no vulvar lesions, no cervical lesions, good vaginal support, physiologic discharge present, normal appearing perineal body and perianal region BIMANUAL: deferred NEURO: alert and oriented x3,exam grossly non-focal EXTREMITIES: normal ASSESSMENT AND PLAN: Assessment AND Plan Screening for STDs (sexually transmitted diseases) Orders: BACTERIAL VAGINOSIS NAAT ESTRELLA/TRICHOMONAS NAAT GONORRHEA/CHLAMYDIA NAAT Ayla Alves APRN.TAYLAM Allergies As of Date: 12/22/2024 Noted Allergy Reaction CATS 07/19/2005 DOGS 07/19/2005 Date Reviewed: 12/22/2024 Reviewed by: Roámn Stinson MA - Fully Assessed Reason for Visit: STD testing [Other] Primary Visit Diagnosis:Screening for STDs (sexually transmitted diseases) [Z11.3] Order(s):BACTERIAL VAGINOSIS NAAT [SQBVAMP] Order #: [id number] ESTRELLA/TRICHOMONAS NAAT [SQCVTV] Order #: [id number] GONOR (more content not included)... Normal [facility] CNOVon 10-31-2024 CNOV Office Visit (FAMPWS ) MALIHA IBARRA ([id number]) 1985 F NFR Date Time Provider Department 10/31/24 11:00 AM FELICITA VIRGEN During your visit today, we recorded the following information about you: Pulse Respiration Blood pressure Weight 80/minute 16/minute 110/78 63.5 kg Last Period 10/28/24 Felicita Virgen APRN.WRAPPER SHEETER 10/31/2024 12:22 PM Signed This is a 39 year old female who presents today with: Patient presents with: Acute Visit: Heart palpitations HISTORY OF PRESENT ILLNESS: Maliha Noman Ibarra is a 39 year old female. Patient presents with: Acute Visit: Heart palpitations Here in the office for palpitations. Previous ECG completed in 2013. Had labs completed recently, CBC, CMP, TSH, and lipids all normal. Has significant family cardiac history. Reports she gets random dizziness throughout the day. Denies chest pain and dizziness with palpitations. Having increased anxiety due to going through a divorce. Mind is racing at night when trying to get to sleep. Having difficulty falling asleep and staying asleep. Getting approx 3-4 hours of sleep a night. Will feel fluttering at night while sleeping. No LOC. PAST MEDICAL HISTORY: PAST MEDICAL HISTORY Diagnosis Date Allergic rhinitis, cause unspecified Asthma athletic childhood asthma Chiari I malformation ([facility]) 05/08/14 Chlamydia 2009 Enlarged pituitary gland ([facility]) 04/17/2014 Unspecified asthma(493.90) PAST SURGICAL HISTORY Procedure Laterality Date ANESTH, SECTION DELIVERY ONLY 03/09/2015 Primary C/S for Chiari I Malformation DELIVERY ONLY 11/23/2017 DELIVERY ONLY 01/10/2021 LTCS TOOTH EXTRACTION [place] teeth x four ALLERGIES Cats and Dogs MEDICATIONS Current Outpatient Medications Medication Sig norgestimate 0.25 mg-ethinyl estradiol 35 mcg 0.25-35 mg-mcg per tablet Take 1 tablet by mouth once daily. No current facility-administered medications for this visit. FAMILY HISTORY Adopted: Yes Problem Relation Age of Onset Hypertension Mother Heart Father atrial fib Breast Cancer Maternal Grandmother Heart Maternal Grandmother Hypertension Maternal Grandfather Heart Paternal Grandmother Hypertension Paternal Grandmother other (Celina Gehrig disease) Paternal Grandfather other (MS) Paternal Aunt other (MS) Paternal Uncle Social History Tobacco Use Smoking status: Never Smokeless tobacco: Never Vaping Use Vaping status: Never Used Substance Use Topics Alcohol use: Yes Comment: socially Drug use: Never REVIEW OF SYSTEMS GENERAL: No weight loss, malaise or fevers/chills HEENT: Negative for frequent or significant headaches, No changes in hearing or vision. NECK: Negative for lumps, goiter, pain and significant neck swelling RESPIRATORY: Negative for cough, hemoptysis, wheezing, dyspnea or shortness of breath CARDIOVASCULAR: + Palpitations GI: No nausea, vomiting, or diarrhea/constipation . No hematochezia/melena. No heartburn or reflux symptoms. : No history of dysuria, frequency or incontinence MUSCULOSKELETAL: Negative for joint pain or swelling. SKIN: Negative for lesions, rash, and itching ENDOCRINE: Negative for cold or heat intolerance, polyuria, polydipsia and goiter NEURO: No history of headaches, syncope, paralysis, seizures or tremors MOOD: Negative for depression, anxiety, or suicidal ideation. EXAM: BP 110/78 Pulse 80 Resp 16 Wt 63.5 kg (140 lb) LMP 10/28/2024 SpO2 99% BMI 22.42 kg/m? PHYSICAL EXAM: General Appearance: Well appearing, alert, in no acute distress, well-hydrated, well nourished. Skin: Skin color, texture, turgor normal, no suspicious rashes or lesions. Head: Normocephalic, no masses, lesions, tenderness or abnormalities. Eyes: Anicteric sclera. Extraocular movements are intact. Lungs: Lungs clear to auscultation. No wheezing, rhonchi, rales. Heart: RRR without murmur, gallop, or rubs. No ectopy. Extremities: No deformities, edema, skin discoloration, clubbing or cyanosis. Good capillary refill. Peripheral Pulses: Normal, Capillary refill <2secs, strong peripheral pulses, Pulses palpable. Neurologic: Gait normal. Sensation grossly intact. ECG: NSR, no ectopy, or ST elevation/depression Latest Ref [facility] 10/25/2024 Protein, Total 6.3 - 8.0 g/dL 7.5 Albumin 3.9 - 4.9 g/dL 4.4 Calcium 8.5 - 10.2 mg/dL 9.4 Bilirubin, Total 0.2 - 1.3 mg/dL 0.7 Alkaline Phosphatase 34 - 123 U/L 62 AST 13 - 35 U/L 24 ALT 7 - 38 U/L 19 Glucose 74 - 99 mg/dL 85 BUN 7 - 21 mg/dL 11 Creatinine 0.58 - 0.96 mg/dL 0.94 Sodium 136 - 144 mmol/L 138 Potassium 3.7 - 5.1 mmol/L 4.3 Chloride 98 - 107 mmol/L 103 CO2 22 - 30 mmol/L 26 Anion Gap 8 - 15 mmol/L 9 eGFR >=60 mL/min/1.73m? 80 WBC 3.70 - 11.00 k/uL 7.51 RBC 3.90 - 5.20 m/uL 4.81 Hemoglobin 11.5 - 15.5 g/dL 14.9 Hematocrit 36.0 - 46.0 % 44.0 M (more content not included)... Normal [facility] [id number] 10-31-2024 ECG01 Ventricular Rate : 7 3 BPM Atrial Rate : 73 BPM P-R Interval : 164 ms QRS Duration : 80 ms Q-T Interval : 386 ms QTC Calculation(Bazett) : 425 ms Calculated P [place] : 77 degrees Calculated R [place] : 83 degrees Calculated T [place] : 61 degrees NORMAL SINUS RHYTHM NORMAL ECG Confirmed by MD WALLACE QARAB ([id number]) on 11/03/2024 11:09:21 AM NAME : MALIHA IBARRA PID : [id number] : 1985 Gender : Female Race : ORD : Procedure Date : Oct 31 2024 11:03:29 Edit Date : Nov 03 2024 11:09:22 Diagnosis: NORMAL SINUS RHYTHM NORMAL ECG Confirmed by MD WALLACE QARAB ([id number]) on 11/03/2024 11:09:21 AM Test Reason : Location : 136 : [place] Overread By : MD WALLACE QARAB Edited By : MD WALLACE QARAB Referred By : Felicita Virgen Acquired by : Patience wharton [facility] CBC panel Auto (Bld)on 10-25 Erythrocyte distribution width (RBC) [Ratio] 12.4 % Normal 11.5-15.0 [facility] Comment on above: Order Comment: Campbell goins Type: BLOOD SPECIMEN Ordering Facility: [facility] Address: [address] [place] [address] Performed By: #### 2 4331-1, 87348-9, 6-3 #### [facility] CLIA [id number] [address] [place] [address] [place] Hematocrit (Bld) [Volume fraction] 44.0 % Normal 36.0-46.0 [facility] Comment on above: Order Comment: Campbell goins Type: BLOOD SPECIMEN Ordering Facility: [facility] Address: [address] [place] [address] Performed By: #### 2 4331-1, 95043-8, 3016-3 #### [facility] CLIA [id number] [address] [place] [address] [place] Hemoglobin (Bld) [Mass/Vol] 14.9 g/dL Normal 11.5-15.5 [facility] Comment on above: Order Comment: Campbell goins Type: BLOOD SPECIMEN Ordering Facility: [facility] Address: [address] [place] [address] Performed By: #### 2 4331-1, 83326-8, 6-3 #### [facility] CLIA [id number] [address] [place] [address] [place] MCH (RBC) [Entitic mass] 31.0 pg Normal 26.0-34.0 [facility] Comment on above: Order Comment: Speci men Type: BLOOD SPECIMEN Ordering Facility: [facility] Address: [address] [place] [address] Performed By: #### 2 4331-1, 21375-2, 6-3 #### [facility] CLIA [id number] [address] [place] [address] [place] MCHC (RBC) [Mass/Vol] 33.9 g/dL Normal 30.5-36.0 [facility] Comment on above: Order Comment: Speci men Type: BLOOD SPECIMEN Ordering Facility: [facility] Address: [address] [place] [address] Performed By: #### 2 4331-1, 21348-3, 6-3 #### [facility] CLIA [id number] [address] [place] [address] [place] MCV (RBC) [Entitic vol] 91.5 fL Normal 80.0-100.0 [facility] Comment on above: Order Comment: Speci men Type: BLOOD SPECIMEN Ordering Facility: [facility] Address: [address] [place] [address] Performed By: #### 2 4331-1, 72626-5, 6-3 #### [facility] CLIA [id number] [address] [place] [address] [place] Nucleated RBC (Bld) [#/Vol] 10*3/uL Normal <0.01 [facility] Comment on above: Order Comment: Speci men Type: BLOOD SPECIMEN Ordering Facility: [facility] Address: [address] [place] [address] Performed By: #### 2 4331-1, 98896-8, 3016-3 #### [facility] CLIA [id number] [address] [place] [address] [place] Platelet mean volume (Bld) [Entitic vol] 9.8 fL Normal 9.0-12.7 [facility] Comment on above: Order Comment: Speci men Type: BLOOD SPECIMEN Ordering Facility: [facility] Address: [address] [place] [address] Performed By: #### 2 4331-1, 98083-5, 3016-3 #### [facility] CLIA [id number] [address] [place] [address] [place] Platelets (Bld) [#/Vol] 254 10*3/uL Normal 150-400 [facility] Comment on above: Order Comment: Speci men Type: BLOOD SPECIMEN Ordering Facility: [facility] Address: [address] [place] [address] Performed By: #### 2 4331-1, 86499-3, 3016-3 #### [facility] CLIA [id number] [address] [place] [address] [place] RBC (Bld) [#/Vol] 4.81 10*6/uL Normal 3.90-5.20 [facility] Comment on above: Order Comment: Speci men Type: BLOOD SPECIMEN Ordering Facility: [facility] Address: [address] [place] [address] Performed By: #### 2 4331-1, 22710-6, 3016-3 #### [facility] CLIA [id number] [address] [place] [address] [place] WBC (Bld) [#/Vol] 7.51 10*3/uL Normal 3.70-11.00 [facility] Comment on above: Order Comment: Speci men Type: BLOOD SPECIMEN Ordering Facility: [facility] Address: [address] [place], [place] [address] Performed By: #### 2 4331-1, 66648-3, 6-3 #### [facility] CLIA [id number] [address] [place], [place] [address] [place] Comprehensive metabolic 2000 panelon 10-25-2024 Albumin [Mass/Vol] 4.4 g/dL Normal 3.9-4.9 [facility] Comment on above: Order Comment: Speci men Type: BLOOD SPECIMEN Ordering Facility: [facility] Address: [address] [place], [place] [address] Performed By: #### 2 4331-1, 36617-4, 6-3 #### [facility] CLIA [id number] [address] [place], [place] [address] [place] ALP [Catalytic activity/Vol] 62 U/L Normal 34-123 [facility] Comment on above: Order Comment: Speci men Type: BLOOD SPECIMEN Ordering Facility: [facility] Address: [address] [place], [place] [address] Performed By: #### 2 4331-1, 81972-6, 3015-3 #### [facility] CLIA [id number] [address] [place], [place] [address] [place] ALT [Catalytic activity/Vol] 19 U/L Normal 7-38 [facility] Comment on above: Order Comment: Speci men Type: BLOOD SPECIMEN Ordering Facility: [facility] Address: [address] [place], [place] [address] Performed By: #### 2 4331-1, 02704-5, 6-3 #### [facility] CLIA [id number] [address] [place], [place] [address] [place] Anion gap [Moles/Vol] 9 mmol/L Normal 8-15 [facility] Comment on above: Order Comment: Speci men Type: BLOOD SPECIMEN Ordering Facility: [facility] Address: [address] [place], [place] [address] Performed By: #### 2 4331-1, 42433-8, 3015-3 #### [facility] CLIA [id number] [address] [place] [address] [place] AST [Catalytic activity/Vol] 24 U/L Normal 13-35 [facility] Comment on above: Order Comment: Speci men Type: BLOOD SPECIMEN Ordering Facility: [facility] Address: [address] [place] [address] Performed By: #### 2 4331-1, , 3 #### [facility] CLIA [id number] [address] [place] [address] [place] Bilirubin [Mass/Vol] 0.7 mg/dL Normal 0.2-1.3 [facility] Comment on above: Order Comment: Speci men Type: BLOOD SPECIMEN Ordering Facility: [facility] Address: [address] [place] [address] Performed By: #### 2 4331-1, , 3 #### [facility] CLIA [id number] [address] [place] [address] [place] Calcium [Mass/Vol] 9.4 mg/dL Normal 8.5-10.2 [facility] Comment on above: Order Comment: Speci men Type: BLOOD SPECIMEN Ordering Facility: [facility] Address: [address] [place], [place] [address] Performed By: #### 2 4331-1, , 3 #### [facility] CLIA [id number] [address] [place], [place] [address] [place] Chloride [Moles/Vol] 103 mmol/L Normal 98-107 [facility] Comment on above: Order Comment: Speci men Type: BLOOD SPECIMEN Ordering Facility: [facility] Address: [address] [place], [place] [address] Performed By: #### 2 4331-1, , 3016-3 #### [facility] CLIA [id number] [address] [place] [address] [place] CO2 [Moles/Vol] 26 mmol/L Normal 22-30 [facility] Comment on above: Order Comment: Speci men Type: BLOOD SPECIMEN Ordering Facility: [facility] Address: [address] [place] [address] Performed By: #### 2 4331-1, , 3015-10 #### [facility] CLIA [id number] [address] [place], [place] [address] [place] Creatinine [Mass/Vol] 0.94 mg/dL Normal 0.58-0.96 [facility] Comment on above: Order Comment: Speci men Type: BLOOD SPECIMEN Ordering Facility: [facility] Address: [address] [place] [address] Performed By: #### 2 4331-1, , 3015-10 #### [facility] CLIA [id number] [address] [place] [address] [place] Creatinine and Glomerular filtration rate.predicted panel (S/P/Bld) 80 mL/min/1.73m??? Normal >=60 [facility] Comment on above: Order Comment: Speci men Type: BLOOD SPECIMEN Ordering Facility: [facility] Address: [address] [place] [address] Result Comment: Noemi mated Glomerular Filtration Rate (eGFR) is calculated using the 2020 CKD-EPI creatinine equation. This equation utilizes serum creatinine, sex, and age as parameters. The creatinine assay has traceable calibration to isotope dilution-mass spectrometry. Refer to KDIGO guidelines for clinical interpretation. In patients with unstable renal function, e.g. those with acute kidney injury, the eGFR may not accurately reflect actual GFR. Performed By: #### 2 4331-1, 69216-0, 3015-10 #### [facility] CLIA [id number] [address] [place] [address] [place] Glucose [Mass/Vol] 85 mg/dL Normal 74-99 [facility] Comment on above: Order Comment: Speci men Type: BLOOD SPECIMEN Ordering Facility: [facility] Address: [address] [place] [address] Result Comment: The [place] Diabetes Association (ADA) provides guidance for cutoff values for fasting glucose and random glucose. The ADA defines fasting as no caloric intake for at least 8 hours. Fasting plasma glucose results between 100 to 125 mg/dL indicate increased risk for diabetes (prediabetes). Fasting plasma glucose results greater than or equal to 126 mg/dL meet the criteria for diagnosis of diabetes. In the absence of unequivocal hyperglycemia, results should be confirmed by repeat testing. In a patient with classic symptoms of hyperglycemia or hyperglycemic crisis, random plasma glucose results greater than or equal to 200 mg/dL meet the criteria for diagnosis of diabetes. Reference: Standards of Medical Care in Diabetes 2016, [place] Diabetes Association. Diabetes Care. 2016.39(Suppl 1). Performed By: #### 2 4331-1, 14137-1, 6-3 #### [facility] CLIA [id number] [address] [place] [address] [place] Potassium [Moles/Vol] 4.3 mmol/L Normal 3.7-5.1 [facility] Comment on above: Order Comment: Campbell goins Type: BLOOD SPECIMEN Ordering Facility: [facility] Address: [address] [place] [address] Performed By: #### 2 4331-1, 81437-1, 3015-3 #### [facility] CLIA [id number] [address] [place] [address] [place] Protein [Mass/Vol] 7.5 g/dL Normal 6.3-8.0 [facility] Comment on above: Order Comment: Speci men Type: BLOOD SPECIMEN Ordering Facility: [facility] Address: [address] [place] [address] Performed By: #### 2 4331-1, 58155-0, 6-3 #### [facility] CLIA [id number] [address] [place] [address] [place] Sodium [Moles/Vol] 138 mmol/L Normal 136-144 [facility] Comment on above: Order Comment: Speci men Type: BLOOD SPECIMEN Ordering Facility: [facility] Address: [address] [place] [address] Performed By: #### 2 4331-1, 07538-4, 6-3 #### [facility] CLIA [id number] [address] [place] [address] [place] Urea nitrogen [Mass/Vol] 11 mg/dL Normal 7-21 [facility] Comment on above: Order Comment: Speci men Type: BLOOD SPECIMEN Ordering Facility: [facility] Address: [address] [place] [address] Performed By: #### 2 4331-1, 92142-3, 3015-3 #### [facility] CLIA [id number] [address] [place] [address] [place] Lipid 1996 panelon 5 Cholesterol [Mass/Vol] 178 mg/dL Normal <200 [facility] Comment on above: Order Comment: Speci men Type: BLOOD SPECIMEN Ordering Facility: [facility] Address: [address] [place] [address] Result Comment: <200 mg/dL, Desirable 200-239 mg/dL, Borderline high >239 mg/dL, High Performed By: #### 2 4331-1, 87390-0, 3015-3 #### [facility] CLIA [id number] [address] [place] [address] [place] Cholesterol in HDL [Mass/Vol] 69 mg/dL Normal >39 [facility] Comment on above: Order Comment: Speci men Type: BLOOD SPECIMEN Ordering Facility: [facility] Address: [address] [place] [address] Result Comment: 40-5 9 mg/dL, Acceptable >59 mg/dL, High: Negative risk factor for coronary heart disease <40 mg/dL, Low: Positive risk factor for coronary heart disease Performed By: #### 2 4331-1, 94243-0, 3015-3 #### [facility] CLIA [id number] [address] [place] [address] [place] Cholesterol in LDL [Mass/Vol] 89 mg/dL Normal <100 [facility] Comment on above: Order Comment: Speci men Type: BLOOD SPECIMEN Ordering Facility: [facility] Address: [address] [place] [address] Result Comment: <100 mg/dL, Optimal 100-129 mg/dL, Near optimal/above optimal 130-159 mg/dL, Borderline high 160-189 mg/dL, High >189 mg/dL, Very high Secondary prevention optimal LDL Cholesterol levels are recommended to be < 70 mg/dL Performed By: #### 2 4331-1, 96802-9, 3 #### [facility] CLIA [id number] [address] [place] [address] [place] Cholesterol in LDL/Cholesterol in HDL [Mass ratio] 1.29 {ratio} Normal <2.54 [facility] Comment on above: Order Comment: Maoi men Type: BLOOD SPECIMEN Ordering Facility: [facility] Address: [address] [place] [address] Result Comment: Bhavya sharpe: 1. National Cholesterol Education Program ATP III Guideline At-A-Glance Quick Desk Reference: National Heart, Lung, and Blood [place]. National Institutes of Health. 2001: NIH Publication No. 01-3305. 2. An International Atherosclerosis Society position paper: global recommendations for the management of dyslipidemia: executive summary, Atherosclerosis. 2014: 232(2):410-413. Performed By: #### 2 4331-1, 96409-7, 3015-3 #### [facility] CLIA [id number] [address] [place] [address] [place] Cholesterol in VLDL [Mass/Vol] 20 mg/dL Normal <30 [facility] Comment on above: Order Comment: Maoi men Type: BLOOD SPECIMEN Ordering Facility: [facility] Address: [address] [place] [address] Performed By: #### 2 4331-1, 73042-7, 3 #### [facility] CLIA [id number] [address] [address] [place] Cholesterol non HDL [Mass/Vol] 109 mg/dL Normal <130 [facility] Comment on above: Order Comment: Speci men Type: BLOOD SPECIMEN Ordering Facility: [facility] Address: [address] [place] [address] Result Comment: <130 mg/dL, Optimal 130-159 mg/dL, Near optimal/above optimal 160-189 mg/dL, Borderline high 190-219 mg/dL, High >219 mg/dL, Very high Secondary prevention optimal non HDL Cholesterol levels are recommended to be <100 mg/dL Performed By: #### 2 4331-1, 84640-9, 3 #### [facility] CLIA [id number] [address] [place], [place] [address] [place] Cholesterol.total/Ch olesterol in HDL [Mass ratio] 2.58 {ratio} Normal <5.10 [facility] Comment on above: Order Comment: Speci men Type: BLOOD SPECIMEN Ordering Facility: [facility] Address: [address] [place] [address] Performed By: #### 2 4331-1, , 3 #### [facility] CLIA [id number] [address] [place], [place] [address] [place] FASTING TIME 12 hrs Normal [facility] Comment on above: Order Comment: Speci men Type: BLOOD SPECIMEN Ordering Facility: [facility] Address: [address] [place] [id number] Performed By: #### 2 4331-1, , 3 #### [facility] CLIA [id number] [address] [place] [address] [place] Triglyceride [Mass/Vol] 98 mg/dL Normal <150 [facility] Comment on above: Order Comment: Campbell goins Type: BLOOD SPECIMEN Ordering Facility: [facility] Address: [address] [place] [address] Result Comment: <150 mg/dL, Normal 150-199 mg/dL, Borderline high 200-499 mg/dL, High >499 mg/dL, Very high Performed By: #### 2 4331-1, 22903-9, 3015-3 #### [facility] CLIA [id number] [address] [place] [address] [place] TSH SerPl-aCncon 10-25-2024 TSH Qn 1.070 m[IU]/L Normal 0.270-4.200 [facility] Comment on above: Order Comment: Campbell goins Type: BLOOD SPECIMEN Ordering Facility: [facility] Address: [address] [place] [address] Result Comment: If t he patient is , TSH reference range varies by gestational period: First Trimester (weeks 9-12): 0.180-2.990 mIU/L Second Trimester: 0.110-3.980 mIU/L Third Trimester: 0.480-4.710 mIU/L Jeyson Andrade et al. A Practical Approach for the Verifications and Determination of Site- and Trimester-Specific Reference Intervals for Thyroid Function tests in . Thyroid, 2019:29:3:412-420. Lan Rose, et al. 2017 Guidelines of the [place] Thyroid Association for the Diagnosis and Management of Thyroid Disease during and the . Thyroid, 2017:27:3:315-389. 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 Maliha is a 38 year old who presents for an annual gynecologic exam without complaints. 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 Menses: cycles every 28-30 days and 3 days of flow. Contraception: norgestimate 0.25 mg-ethinyl estradiol 35 mcg 0.25-35 mg-mcg HPV vaccine: Yes Last Pap: 04/24/2023 normal HPV: 04/18/2023 negative History of abnormal pap: No Last mammogram: never Sexually active: Not currently History of STDS: chlamydia Patient concerns for STD exposure: No. Exercise: mom of 3 OB History T3 L3 SAB0 IAB0 Ectopic0 Multiple0 Live Births3 Senior Data Integration Developer History LMP: 03/16/2023 (Approximate), Unknown Age at Menarche: Age at First : Age at Menopause: Senior Data Integration Developer History Comments: Sexual Activity: Yes; Male Contraception: Pill PAST MEDICAL HISTORY Diagnosis Date Allergic rhinitis, cause unspecified Asthma athletic childhood asthma Chiari I malformation (HCC) 05/08/14 Chlamydia 2010 Enlarged pituitary gland (HCC) 04/17/2014 Unspecified asthma(493.90) PAST SURGICAL HISTORY Procedure Laterality Date ANESTH, SECTION DELIVERY ONLY 03/09/2015 Primary C/S for Chiari I Malformation DELIVERY ONLY 11/23/2017 DELIVERY ONLY 01/10/2021 LTCS FAMILY HISTORY Adopted: Yes Problem Relation Age of Onset Hypertension Mother Heart Father atrial fib Breast Cancer Maternal Grandmother Heart Maternal Grandmother Hypertension Maternal Grandfather Heart Paternal Grandmother Hypertension Paternal Grandmother other (Celina Gehrig disease) Paternal Grandfather other (MS) Paternal Aunt other (MS) Paternal Uncle SOCIAL HISTORY Social History Tobacco Use Smoking status: Never Smokeless tobacco: Never Vaping Use Vaping status: Never Used Substance Use Topics Alcohol use: Yes Comment: socially, not while Drug use: No REVIEW OF SYSTEMS Abdomen: No abdominal pain, nausea, vomiting, diarrhea, or constipation. No bloating, early satiety, indigestion, or increased flatulence. Bladder: No dysuria, gross hematuria, urinary frequency, urinary urgency, or incontinence. Breast: No breast lumps, nipple d/c, overlying skin changes, redness or skin retraction. Allergies and current medication updated:Yes SENSITIVE EXAM: The sensitive examination was discussed with the Patient or Patient's Authorized Development Technical Lead. As applicable, any other physician, advance practice provider, medical student, or other health professional student that will be observing or involved in the sensitive examination for educational or training purposes was discussed with the Patient or Authorized Development Technical Lead. The Patient or Authorized Development Technical Lead has agreed to proceed with the sensitive examination. (Sensitive examination includes inspection and/or palpation of the breasts, pelvis, prostate and anorectal regions). EXAM: BP 102/70 Pulse 88 Resp 14 Ht 5' 6.26 (1.68m) Wt 149 lb (67.6kg) SpO2 98% LMP 05/16/2024 BMI 23.86 kg/(m2). GENERAL: pleasant, female in no apparent distress HEENT: Normocephalic, atraumatic, mucus membranes moist, and no lesions NECK: Supple, full range of motion, no adenopathy, and thyroid normal DERMATOLOGY: Normal, without lesions, non-icteric, and non-hirsute BREAST: soft, non-tender, symmetric, no dominant mass, normal nipple-areolar complex, no lymphadenopathy, and no nipple discharge CHEST: Normal inspiratory effort ABDOMEN: soft, non-tender, and no masses PELVIC: external genitalia normal, normal Bartholin's glands, urethra, [place]'s glands, no vulvar lesions, no cervical lesions, good vaginal support, physiologic discharge present, normal appearing perineal body and perianal region BIMANUAL: uterus normal size, shape and consistency, no adnexal masses, and non-tender RECTOVAGINAL: deferred. NEURO: alert and oriented x3,exam grossly non-focal EXTREMITIES: normal ASSESSMENT/PLAN: 1) Health maintenance: Pap/HPV up to date 2022. Deferred until 2027. Nutrition, exercise and routine health maintenance exams reviewed. HPV vaccine: completed series 2) Contraception: combined hormonal contraceptives. Denies migraines with aura, VTE history or clotting disorder, hypertension, or liver issues. Does not smoke. Reviewed r/b. 3) STD screening: Declined STD check. 4) Follow up one year or sooner as needed Narcisa Moraels APRN.SAYDA All (more content not included)... [facility] (OB[facility]) MALIHA IBARRA ([id number]) 1985 F NFR Date Time Provider Department 05/09/24 STACEY BOSS OBGY During your visit today, we recorded the following information about you: Marissa Mejia RN 05/09/2024 12:07 PM Signed Annual scheduled for 05/23/24. Patient asking for refill prior to then of OCP. Also she is asking if she can get valacyclovir refill? 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 It has been many many years since last outbreak with it, but she has been under a lot of stress lately. This was previously given to her by PCP- last was 03/31/[address] Hightower. Asking if she can get that refill too or if she needs to contact PCP? Requested Prescriptions Pending Prescriptions Disp Refills valACYclovir (VALTREX) 1 gram tablet 21 tablet 0 Sig: Take 1 tablet by mouth three times a day for 7 days. norgestimate 0.25 mg-ethinyl estradiol 35 mcg 0.25-35 mg-mcg per tablet 84 tablet 0 Sig: Take 1 tablet by mouth once daily. JAMESON Simon Renee, APRN.CNP 05/09/2024 3:18 PM Signed RX sent. Payal Juarez APRN.Marissa Atkinson RN 05/09/2024 3:22 PM Signed Patient notified. Marissa Mejia RN The following approved medication requests have been transmitted electronically. Requested Prescriptions Signed Prescriptions Disp Refills valACYclovir (VALTREX) 1 gram tablet 21 tablet 0 Sig: Take 1 tablet by mouth three times a day for 7 days. Authorizing Provider: PAYAL JUAREZ norgestimate 0.25 mg-ethinyl estradiol 35 mcg 0.25-35 mg-mcg per tablet 84 tablet 0 Sig: Take 1 tablet by mouth once daily. Authorizing Provider: PAYAL JUAREZ Pharmacy Information Pharmacy Address [id number] [place] [address] Allergies As of Date: 05/09/2024 Noted Allergy Reaction CATS 07/19/2005 DOGS 07/19/2005 Date Reviewed: 04/13/2023 Reviewed by: Stacey Boss APRN.WRAPPER SHEETER - Fully Assessed Reason for Visit: Medication Request [138] Visit Diagnosis:Surveillanc e for control, oral contraceptives [Z30.41] Order(s):valACYclovir (VALTREX) 1 gram tabletTake 1 tablet by mouth three times a day for 7 days.Disp: 21 tabletRfl: 0 norgestimate 0.25 mg-ethinyl estradiol 35 mcg 0.25-35 mg-mcg per tabletTake 1 tablet by mouth once daily.Disp: 84 tabletRfl: 0 Prescriptions as of 05/09/2024 - valACYclovir (VALTREX) 1 gram tablet Take 1 tablet by mouth three times a day for 7 days. - norgestimate 0.25 mg-ethinyl estradiol 35 mcg 0.25-35 mg-mcg per tablet Take 1 tablet by mouth once daily. Problem List As Of Date 05/09/2024 Noted Resolved ASTHMA UNSPECIFIED [J45.909] 04/21/2015 ALLERGIC RHINITIS NOS [J30.9] 04/21/2015 Enlarged pituitary gland (HCC) [E23.6] 04/17/2014 Supervision of normal first [Z34.00] 07/30/2014 04/21/2015 Arnold-Chiari malformation, type I (HCC) [G93.5]07/30/2014 History of delivery [Z98.891] 04/02/2017 01/17/2021 Group B Streptococcus carrier, antepartum [O99.*05/01/2017 01/01/2018 Rubella non-immune status, antepartum [O09.899,*08/17/2017 01/01/2018 Positive GBS test [B95.1] 12/20/2020 01/17/2021 Prescriptions ordered this encounter Disp Refills Start End VALACYCLOVIR 1 GRAM TABLET 21 t* 0 05/09/2024 05/16/2024 Route: ORAL Sig: Take 1 tablet by mouth three times a day for 7 days. NORGESTIMATE 0.25 MG-ETHINYL ESTRADI* 84 t* 0 05/09/2024 Route: ORAL Sig: Take 1 tablet by mouth once daily. Medications Discontinued During This Encounter Prescriptions - valACYclovir 1 gram tab (Discontinued) Take 1 tablet by mouth three times daily for 7 days. - norgestimate 0.25 mg-ethinyl estradiol 35 mcg 0.25-35 mg-mcg per tablet (Discontinued) Take 1 tablet by mouth once daily. Encounter Status:Closed by MARISSA MEJIA on 05/09/24 [facility] Visit Reporton 0 12-23-2023 Urgent Care Visit Report [facility] [address], [address] [place] [address] OFFICE VISIT Date of Service: 12/23/23 MR#: [id number] Acct: [id number] Name: MALIHA IBARRA Rep #: [id number] : 1985 Provider: CHRIS merlos Age/Sex: 38/F Location: [facility] Status: Signed Intake Vital Signs 08/21/23 09:22 12/23/23 08:42 Height 5 ft 7 in Weight: 160 lb BMI 25.0 BP 98/64 116/62 Blood Pressure Location Lt brachial Lt brachial Position Sitting Sitting Respiration 16 12 Pulse 116 H 123 H Pulse Source Monitor Monitor Temp 98.4 F 98.2 F Temp Source Temporal Temporal Pulse Oximetry (%) 98 99 Oxygen Delivery Method room air room air Intake Visit Reasons: BA/ST Chief Complaint: CONCERNS FOR STREP Allergies No Known Allergies Allergy (Verified 12/23/23 08:42) [facility] Medical History Asthma Chlamydia infection affecting Superficial varicosities Surgical History Previous section Social History Smoking Status: Never smoker HPI HPI Chief Complaint: CONCERNS FOR STREP Details: MALIHA IBARRA, is a 38 F who presents to the office today for concerns regarding body ache and sore throat. She underwent testing prior to evaluation. She states this started this morning at 3 AM. She did not have a fever. ROS Const Constitutional: Positive for body ache, headache(s) (Yesterday, resolved today) and change in appetite (less PO food); No chills, fatigue or fever(s) Eyes Eyes: No blurry vision, change in vision, double vision, irritation, discharge, vision loss, dry eyes, bulging eyes, floaters, visual disturbances, eye pain, Light sensitivity, spots in vision, tunnel vision or other ENT ENT: Positive for headache(s) (Yesterday, resolved today), difficulty swallowing, hoarseness, neck pain and sore throat; No ear or mastoid pain, ear discharge, ear pressure, hearing loss, tinnitus, dizziness/vertigo, balance problems, nosebleed/epistaxis, nasal congestion, nose pain, sinus pressure, sinus pain, nasal discharge, post nasal drip, facial pain, dental pain, bad breath, lip swelling, mouth lesions, mouth pain, tongue swelling or throat swelling Resp Respiratory: Positive for cough; No shortness of breath, stridor or wheezing Cardio Cardiology: No chest pain at rest or chest pain with exertion Gastro GI: Positive for difficulty swallowing; No abdominal pain, constipation or diarrhea Genitourinary-Female: No difficulty urinating, burning urination or urinary urgency Musc Musculoskeletal: Positive for neck pain; No joint pain Skin Skin: No rash Neuro Neurology: Positive for headache(s) (Yesterday, resolved today); No visual disturbances Psych Psychiatric: Positive for change in appetite (less PO food) Endo Endocrine: No fatigue Aller/Imm Allergy/Immunologic: No lip swelling, throat swelling, tongue swelling or wheezing Exam Const General: cooperative, healthy appearing, comfortable and no acute distress Orientation: alert, not awake and oriented x3 HENMT Head: normal to inspection Ears: hearing grossly normal bilaterally Nose: external nose normal Face and sinus: normal facial exam Mouth: oral mucosae normal, lip normal and tongue normal Throat: abnormal tonsil bilaterally erythema and exudates, posterior oropharynx abnormal erythema and no postnasal drainage Eyes General: appearance normal, both eyes and all related structures Eyelids: eyelids normal Conjunctivae: conjunctivae normal Neck Neck: normal visual inspection, full ROM and no lymphadenopathy Chest Chest palpation inspection: normal inspection of the chest Resp Effort Inspection: normal respiratory effort and no cough Auscultation: Bilateral: Clear to Auscultation Cardio Rate: other Rhythm: regular rhythm Heart Sounds: S1 normal and S2 normal GI Inspection: normal to inspection Skin General: no rashes or lesions noted Results POC Rufina Rapid Strep POC Rufina Rapid Strep Positive Last Edit by Yessi Armendariz on 12/23/23 09:00 Coding Level of Care Code Off vis,est,level 3 Diagnoses Strep pharyngitis J02.0 Assessment and Plan Assessment and Plan (1) Strep pharyngitis: Status: Acute Plan: Her testing today was positive. Will treat with antibiotic therapy as prescribed. Encouraged to get plenty of rest, drink lots of clear liquids, and use Tylenol or Ibuprofen (unless contraindicated) for fever and comfort. Patient also educated on other symptomatic management techniques. To be seen in 7-10 days if no improvement; sooner if worsening of symptoms.??? Patient advised of potential red flags and when appropriat (more content not included)... Normal [facility] Urgent Care Visit Reporton 1 10-22-2022 Urgent Care Visit Report [facility] [address], [address] [place] [address] OFFICE VISIT Date of Service: 08/21/23 MR#: [id number] Acct: [id number] Name: MALIHA IBARRALLE Rep #: [id number] : 1985 Provider: BABAR Zamora Age/Sex: 38/F Location: [facility] Status: Signed Intake Vital Signs 01/10/21 05:36 08/21/23 09:22 Height 5 ft 6 in 5 ft 7 in Weight: 160 lb BMI 25.0 BP 98/64 Blood Pressure Location Lt brachial Position Sitting Respiration 16 Pulse 116 H Pulse Source Monitor Temp 98.4 F Temp Source Temporal Pulse Oximetry (%) 98 Oxygen Delivery Method room air Intake Visit Reasons: CONCERN FOR STREP Chief Complaint: CONCERNS FOR STREP Deputy Head Required: No Accompanied by: Self Is patient in pain?: No Allergies No Known Allergies Allergy (Verified 08/21/23 09:23) Medications vits,calcium no.78-iron fumarate-folic acid 29 mg-1 mg tablet (Prenatabs FA) 1 tab PO DAILY 01/06/15 [History Confirmed 08/21/23] acetaminophen 500 mg tablet 1,000 mg (2 x 500 mg) PO Q6 #60 tabs 01/11/21 [Rx Confirmed 08/21/23] naproxen 500 mg tablet 500 mg PO Q8H #60 tabs 01/11/21 [Rx Confirmed 08/21/23] oxycodone 5 mg tablet 5 - 10 mg (1 - 2 x 5 mg) PO 4X/DAY PRN PRN Pain Score 4-10 5 days #10 tabs 01/11/21 [Rx Confirmed 08/21/23] simethicone 80 mg chewable tablet (Mi-Acid Gas Relief (simethicone)) 80 mg PO PCHS PRN Indigestion/stomach pain #20 tabs 01/11/21 [Rx Confirmed 08/21/23] amoxicillin 500 mg capsule 500 mg PO TID 10 days #30 caps 08/21/23 [Rx Confirmed 08/21/23] PFSH Medical History Asthma Chlamydia infection affecting Superficial varicosities Surgical History Previous section Social History Smoking Status: Never smoker HPI HPI Chief Complaint: CONCERNS FOR STREP Details: MALIHA IBARRA, is a 38 F who presents to the office today for initial evaluation 3-day history of progressively worsening sore throat with swollen erythematous tonsillar pillars, swollen tender cervical lymph nodes in front of neck, no cough, fever. Painful swallowing appreciated though no difficulty swallowing/drooling. No rash. No complaints of chest pressure/shortness of breath/dyspnea on exertion. Non-smoker. ???No close contacts with similar complaints. ???No zjwv-qnr-nhhyztq products taken to assist. History of, strep' arthritis as patient describes. No other associated symptoms and no other alleviating/aggravati ng factors. ROS Const Constitutional: No other (As above) Exam Const General: cooperative, healthy appearing and no acute distress Orientation: alert, awake and oriented x3 HENMT Head: normal to inspection Ears: hearing grossly normal bilaterally, external ears normal, TM's normal bilaterally and EAC's normal Nose: external nose normal, nares normal, septum normal and no nasal discharge Face and sinus: normal facial exam, sinuses nontender and face symmetric Mouth: oral mucosae normal, lip normal, tongue normal and oropharynx normal Throat: posterior oropharynx normal, uvula midline, abnormal tonsil bilaterally erythema; no exudates and no hypertrophy and no postnasal drainage Eyes General: appearance normal, both eyes and all related structures Neck Neck: normal visual inspection, full ROM, no meningeal signs, supple and lymphadenopathy (Bilateral anterior cervical lymph node swelling/tender to palpation) Neck mass: No Thyroid: thyroid normal Chest Chest palpation inspection: normal inspection of the chest Resp Effort Inspection: normal respiratory effort and able to speak in complete sentences Auscultation: Bilateral: Clear to Auscultation Cardio Palpation: normal PMI Rate: regular rate Rhythm: regular rhythm Heart Sounds: S1 normal, S2 normal, no gallops, no murmurs and no rubs Pulses: radial pulses present Skin General: no rashes or lesions noted Neuro General: patient alert, patient awake and patient oriented x3 Cognition: normal cognition Speech: speech normal Psych Appearance: grossly normal Mental Status: mental status grossly normal Mood: congruent mood Affect: normal affect Speech and Movement: speech and movement normal Attitude: cooperative Diagnoses Acute pharyngitis J02.9 Assessment and Plan Assessment and Plan (1) Acute pharyngitis: Status: Acute Plan: 3/ Centor criteria. Amoxicillin as prescribed today. Supportive measures as instructed today. Follow-up with PCP in 3 to 5 days should symptoms not improve, ED sooner should symptoms worsen or any other concerns develop. Patient states acknowledging understanding all the above. Coding Level (more content not included)... Normal [facility] Vital Signs Date Time Vital Sign Value Performing Clinician Sydni melchor 02-02-2025 11:05-0400 Body mass index (BMI) [Ratio] 21.83 kg/m2 Samuel Hart MD Work Phone: [facility] 02-02-2025 11:05-0400 Body weight 63.23 kg Samuel Hart MD Work Phone: [facility] 02-02-2025 11:05-0400 Diastolic blood pressure 68 mm[Hg] Samuel Hart MD Work Phone: [facility] 02-02-2025 11:05-0400 Systolic blood pressure 100 mm[Hg] Samuel Hart MD Work Phone: [facility] 10-31-2024 10:50-0500 Body mass index (BMI) [Ratio] 22.42 kg/m2 Felicita Virgen SOCIAL SERVICE DIRECTOR.WRAPPER SHEETER Work Phone: [facility] 10-31-2024 10:50-0500 Body weight 63.5 kg Felicita Virgen SOCIAL SERVICE DIRECTOR.WRAPPER SHEETER Work Phone: [facility] 10-31-2024 10:50-0500 Diastolic blood pressure 78 mm[Hg] Felicita Virgen SOCIAL SERVICE DIRECTOR.WRAPPER SHEETER Work Phone: [facility] 10-31-2024 10:50-0500 Heart rate 80 /min Felicita Virgen SOCIAL SERVICE DIRECTOR.WRAPPER SHEETER Work Phone: [facility] 10-31-2024 10:50-0500 Respiratory rate 16 /min Felicita Virgen SOCIAL SERVICE DIRECTOR.WRAPPER SHEETER Work Phone: [facility] 10-31-2024 10:50-0500 SaO2% (BldA) [Mass fraction] 99 % Felicita Virgen SOCIAL SERVICE DIRECTOR.WRAPPER SHEETER Work Phone: [facility] 10-31-2024 10:50-0500 Systolic blood pressure 110 mm[Hg] Felicita Virgen SOCIAL SERVICE DIRECTOR.WRAPPER SHEETER Work Phone: [facility] 05-23-2024 15:59-0400 Body height 168.3 cm Narcisa Morales SOCIAL SERVICE DIRECTOR.WRAPPER SHEETER Work Phone: [facility] 05-23-2024 15:59-0400 Body mass index (BMI) [Ratio] 23.86 kg/m2 Narcisa Morales APRN.WRAPPER SHEETER Work Phone: [facility] 05-23-2024 15:59-0400 Body weight 67.59 kg Narcisa Morales APRN.WRAPPER SHEETER Work Phone: [facility] 05-23-2024 15:59-0400 Diastolic blood pressure 70 mm[Hg] Narcisa Morales APRN.WRAPPER SHEETER Work Phone: [facility] 05-23-2024 15:59-0400 Heart rate 88 /min Narcisa Morales APRN.WRAPPER SHEETER Work Phone: [facility] 05-23-2024 15:59-0400 Respiratory rate 14 /min Narcisa Morales APRN.WRAPPER SHEETER Work Phone: [facility] 05-23-2024 15:59-0400 SaO2% (BldA) [Mass fraction] 98 % Narcisa Morales APRN.WRAPPER SHEETER Work Phone: [facility] 05-23-2024 15:59-0400 Systolic blood pressure 102 mm[Hg] Narcisa Morales APRN.WRAPPER SHEETER Work Phone: [facility] 04-13-2023 16:03-0400 Body height 169.5 cm Stacey Boss APRN.WRAPPER SHEETER Work Phone: [facility] 04-13-2023 16:03-0400 Body weight 72.67 kg Stacey Boss APRN.WRAPPER SHEETER Work Phone: [facility] 04-13-2023 16:03-0400 Diastolic blood pressure 68 mm[Hg] Stacey Boss APRN.WRAPPER SHEETER Work Phone: [facility] 04-13-2023 16:03-0400 Systolic blood pressure 112 mm[Hg] Stacey Boss APRN.WRAPPER SHEETER Work Phone: [facility] Encounters Encounter Date Encounter Type Care Provider Facility Start: 02-02-2025 End: 02-02-2025 Patient encounter procedure Samuel Hart MD Work Phone: OB/Gynecology Comment on above: Vaginal discharge (P rimary Dx) Start: 02-02-2025 End: 02-02-2025 ambulatory SAMUEL LANCE Facility:[facility] Start: 02-01-2025 End: 02-02-2025 ambulatory Ayla Alves APRN.CNM Work Phone: OB/Gynecology Comment on above: Yeast Infection Agai n Start: 12-22-2024 End: 12-22-2024 ambulatory AYLA ALVES Facility:[facility] Start: 11-28-2024 End: 01-28-2025 Follow-up encounter Felicita Virgen APRN.WRAPPER SHEETER Work Phone: [facility] Comment on above: Results Start: 10-31-2024 End: 10-31-2024 Office outpatient visit 25 minutes Felicita Virgen APRN.WRAPPER SHEETER Work Phone: Family [facility] Comment on above: Palpitations (Primar y Dx); Anxiety with depression; Screening for depression; Encounter for screening examination for other mental health and behavioral disorders Start: 10-31-2024 End: 10-31-2024 ambulatory FELICITA VIRGEN Facility:[facility] Start: 10-25-2024 End: 10-25-2024 ambulatory CEE Love [facility] Facility:[facility] Start: 10-25-2024 Encounter for genera l adult medical examination without abnormal findings AYLA ALVES [facility] Start: 10-17-2024 End: 10-17-2024 ambulatory Nurse Intm/Famp Triage [facility] Work Phone: Nurse Phone Triage Comment on above: Palpitations Start: 10-17-2024 End: 10-17-2024 Patient encounter status Nurse Intm/Famp Triage [facility] Work Phone: [facility] Work Phone: Start: 05-23-2024 End: 05-23-2024 Patient encounter procedure Narcisa Morales APRN.WRAPPER SHEETER Work Phone: OB/Gynecology Comment on above: Encounter for gyneco logical examination (general) (routine) without abnormal findings (Primary Dx); Surveillance for control, oral contraceptives Start: 05-23-2024 End: 05-23-2024 Patient encounter status Narcisa Morales BRENDA.WRAPPER SHEETER Work Phone: [facility] Start: 05-23-2024 End: 05-23-2024 ambulatory NARCISA MORALES Facility:[facility] Start: 05-23-2024 Encounter for gynecological examination (general) (routine) without abnormal findings NARCISA MORALES [facility] Start: 05-11-2024 End: 05-12-2024 Refill Payal Juarez APRN.WRAPPER SHEETER Work Phone: OB/Gynecology Comment on above: Refill Request Start: 05-09-2024 End: 05-09-2024 Telephone encounter Stacey Boss APRN.WRAPPER SHEETER Work Phone: OB/Gynecology Comment on above: Medication Request Start: 05-07-2024 End: 05-07-2024 Refill Stacey Boss APRN.WRAPPER SHEETER Work Phone: OB/Gynecology Comment on above: Refill Request Start: 12-23-2023 End: 12-23-2023 ambulatory Zafar Dextre MOLD WASHER Facility:[facility] Start: 08-21-2023 End: 08-21-2023 ambulatory Abhishek ECKERT Facility:[facility] Start: 04-13-2023 End: 04-13-2023 Patient encounter procedure Stacey Boss APRN.WRAPPER SHEETER Work Phone: OB/Gynecology Comment on above: Encounter for gyneco logical examination without abnormal finding (Primary Dx); Encounter for screening for malignant neoplasm of cervix; Special screening examination for human papillomavirus (HPV); Surveillance for control, oral contraceptives Start: 04-13-2023 End: 04-13-2023 Patient encounter status Stacey Boss APRN.WRAPPER SHEETER Work Phone: [facility] Start: 03-20-2023 Refill Olga archer MD Work Phone: OB/Gynecology Comment on above: Refill Request Start: 10-05-2022 Refill Olga archer MD Work Phone: OB/Gynecology Comment on above: Refill Request Start: 10-01-2022 Refill Olga archer MD Work Phone: OB/Gynecology Comment on above: Refill Request Procedures Date Procedure Procedure Detail Performing Clinician Start: 02-02-2025 BACTERIAL VAGINOSIS NAAT Samuel Hart MD Work Phone: Start: 02-02-2025 Iadna trichomonas vaginalis amplified probe tech Samuel Hart MD Work Phone: Start: 10-31-2024 Adult depression screening assessment Felicita Virgen APRN.SAYDA Work Phone: Start: 04-02-2017 End: 01-17-2021 H/O: section History of delivery Stacey Boss APRN.CNP Work Phone: Plan of Treatment Date Care Activity Detail Author Start: 11-12-2030 Urine microalbumin profile [facility] Start: 04-13-2028 Screening for malign ant neoplasm of cervix Cervical Cancer Screening [facility] Start: 12-23-2025 End: 12-23-2025 Patient encounter procedure 12/23/2025 8:15 AM EDT Office Visit OB/Gynecology [address] [place] [id number] Ayla Alves APRN.CN [address] [place] [address] Annual OB/Gynecology Comment on above: Annual Start: 10-31-2025 Anxiety Screening Anxiety Screening [facility] Start: 10-31-2025 Depression Screening Depression Scre ening [facility] Start: 10-31-2024 End: 10-31-2024 Patient encounter procedure 10/31/2024 11:00 AM EST Office Visit Family Yovani [place] [address] [place] [id number] Felicita Virgen APRN.WRAPPER SHEETER [address] [place] [address] Physical. Heart palpitations. See triage note 10/17/24. Family Yovani Finch Comment on above: Physical. Heart palp itations. See triage note 10/17/24. Start: 10-17-2024 End: 01-16-2025 CBC panel - Blood by Automated count COMPLETE BLOOD COUNT Lab Routine Wellness examination Palpitations Expected: 10/17/2024 (Approximate), Expires: 01/16/[address] [facility] Comment on above: Expected: 10/17/2024 (Approximate), Expires: 01/16/2025 Start: 10-17-2024 End: 01-16-2025 Comprehensive metabolic 2000 panel - Serum or Plasma COMPREHENSIVE METABOLIC PANEL Lab Routine Wellness examination Palpitations Expected: 10/17/2024 (Approximate), Expires: 01/16/[address] [facility] Work Phone: Comment on above: Expected: 10/17/2024 (Approximate), Expires: 01/16/2025 Start: 10-17-2024 End: 01-16-2025 Lipid 1996 panel - Serum or Plasma LIPID PANEL BASIC Lab Routine Wellness examination Palpitations Screening for lipid disorders Expected: 10/17/2024 (Approximate), Expires: 01/16/[address] [facility] Comment on above: Expected: 10/17/2024 (Approximate), Expires: 01/16/2025 Start: 10-17-2024 End: 01-16-2025 Thyrotropin [Units/volume] in Serum or Plasma THYROID STIMULATING HORMONE Lab Routine Wellness examination Palpitations Expected: 10/17/2024 (Approximate), Expires: 01/16/[address] [facility] Comment on above: Expected: 10/17/2024 (Approximate), Expires: 01/16/2025 Start: 05-23-2024 End: 05-23-2024 Patient encounter procedure 05/23/2024 4:00 PM EDT Office Visit OB/Gynecology [address] [place] [address] Narcisa Morales APRN.WRAPPER SHEETER [address] [place] [address] Annual OB/Gynecology Comment on above: Annual Start: 04-27-2024 Covid-19 Vaccine () Covid-19 Vaccine () [facility] Start: 04-27-2024 Covid-19 Vaccine ( season) Covid-19 Vaccine ( season) [facility] Start: 04-27-2024 Influenza vaccination Influenza Vacc ine (#1) [facility] Start: 04-27-2023 Influenza vaccination INFLUENZA (#1) [facility] Start: 01-01-2023 HPV TESTING HPV TESTING [facility] Start: 01-01-2023 PAP TESTING PAP TESTING [facility] Start: 08-27-2022 DEPRESSION ASSESSMENT DEPRESSION ASS ESSMENT [facility] Start: 04-27-2022 Influenza vaccination INFLUENZA (#1) [facility] Start: 2005 Anxiety Screening Anxiety Screening [facility] Start: 2005 Depression Screening Depression Scre ening [facility] Start: 01-20-1988 COVID-19 VACCINE (#1) COVID-19 VACCI NE (#1) [facility] ECG COMPLETE ECG COMPLETE ECG Routine Palpitations Ordered: 10/31/[address] [facility] Work Phone: Comment on above: Ordered: 10/31/2024 OUTSIDE VENDOR CARDI AC OUTPATIENT EXTENDED RHYTHM RECORDING (WITHOUT TELEMETRY) OUTSIDE VENDOR CARDIAC OUTPATIENT EXTENDED RHYTHM RECORDING (WITHOUT TELEMETRY) Holter Routine Palpitations Ordered: 10/31/[address] [facility] Comment on above: Ordered: 10/31/2024 PAP TEST PAP TEST Lab Lance castaneda Encounter for gynecological examination without abnormal finding Encounter for screening for malignant neoplasm of cervix Special screening examination for human papillomavirus (HPV) 04/13/2023 4:34 PM EDT [facility] Work Phone: [facility] Immunizations Immunization Date Immunization Notes Care Provider Fa cility 11-12-2020 tetanus toxoid, redu vanessa diphtheria toxoid, and acellular pertussis vaccine, adsorbed Olga Tejeda MD Work Phone: [facility] 06-27-2020 tetanus toxoid, redu vanessa diphtheria toxoid, and acellular pertussis vaccine, adsorbed Olga Tejeda MD Work Phone: [facility] Work Phone: 11-25-2017 measles, mumps and rubella virus vaccine Olga Tejeda MD Work Phone: [facility] Work Phone: 12-16-2014 tetanus toxoid, redu vanessa diphtheria toxoid, and acellular pertussis vaccine, adsorbed Olga Tejeda MD Work Phone: [facility] 05-30-2008 human papilloma viru s vaccine, quadrivalent Olga Tejeda MD Work Phone: [facility] Work Phone: 11-06-2007 human papilloma viru s vaccine, quadrivalent Olga Tejeda MD Work Phone: [facility] 08-16-2007 human papilloma viru s vaccine, quadrivalent Olga Tejeda MD Work Phone: [facility] 02-20-2006 hepatitis B vaccine, pediatric or pediatric/adolescent dosage Olga Tejeda MD Work Phone: [facility] Work Phone: 04-03-2003 hepatitis B vaccine, pediatric or pediatric/adolescent dosage Olga Tejeda MD Work Phone: [facility] 02-09-2003 diphtheria and tetan us toxoids, adsorbed for pediatric use Olga Tejeda MD Work Phone: [facility] 02-09-2003 hepatitis B vaccine, pediatric or pediatric/adolescent dosage Olga Tejeda MD Work Phone: [facility] 02-09-2003 TD(adult) unspecifie d formulation Olga Tejeda MD Work Phone: [facility] Work Phone: 04-09-2000 measles, mumps and rubella virus vaccine Olga Tejeda MD Work Phone: [facility] 07-01-1992 diphtheria, tetanus toxoids and acellular pertussis vaccine, unspecified formulation Olga Tejeda MD Work Phone: [facility] Work Phone: 07-01-1992 DTaP-Haemophilus influenzae type b conjugate vaccine Olga Tejeda MD Work Phone: [facility] 07-01-1992 poliovirus vaccine, inactivated Olga Tejeda MD Work Phone: [facility] 06-14-1989 haemophilus influenz ae type b vaccine, conjugate unspecified formulation Olga Tejeda MD Work Phone: [facility] Work Phone: 01-25-1989 diphtheria, tetanus toxoids and acellular pertussis vaccine, unspecified formulation Olga Tejeda MD Work Phone: [facility] Work Phone: 01-25-1989 DTaP-Haemophilus influenzae type b conjugate vaccine Olga Tejeda MD Work Phone: [facility] 01-25-1989 poliovirus vaccine, inactivated Olga Tejeda MD Work Phone: [facility] 11-09-1988 measles, mumps and rubella virus vaccine Olga Tejeda MD Work Phone: [facility] 02-15-1988 diphtheria, tetanus toxoids and pertussis vaccine Olga Tejeda MD Work Phone: [facility] Work Phone: 02-15-1988 DTaP-Haemophilus influenzae type b conjugate vaccine Olga Tejeda MD Work Phone: [facility] 1987 diphtheria, tetanus toxoids and pertussis vaccine Olga Tejeda MD Work Phone: [facility] Work Phone: 1987 DTaP-Haemophilus influenzae type b conjugate vaccine Olga Tejeda MD Work Phone: [facility] 1987 poliovirus vaccine, inactivated Olga Tejeda MD Work Phone: [facility] 1987 diphtheria, tetanus toxoids and pertussis vaccine Olga Tejeda MD Work Phone: [facility] Work Phone: 1987 DTaP-Haemophilus influenzae type b conjugate vaccine Olga Tejeda MD Work Phone: [facility] 1987 poliovirus vaccine, inactivated Olga Tejeda MD Work Phone: [facility] Payers Date Payer Category Payer Self-pay 2019 Private Health Insurance [employer] PPO [id number] 2019 Unknown [id number] 2019 Unknown [id number] Unknown [id number] Unknown [id number] Social History Date Type Detail Facility Start: 02-17-2011 End: 04-13-2023 Tobacco smoking status NHIS Never smoked tobacco [facility] Work Phone: Start: 02-17-2011 End: 04-13-2023 Tobacco use and exposure Smokeless tobacco non-user [facility] Work Phone: Start: 11-03-2021 End: 10-31-2024 Alcohol intake Current drinker of alcohol (finding) [facility] Start: 11-03-2021 History SDOH Alcohol Frequency [address] [facility] Start: 11-03-2021 History SDOH Alcohol Std Drinks [address] [facility] Start: 11-03-2021 History SDOH Social Connections Phone [address] [facility] Start: 11-03-2021 History SDOH Social Connections Meetings [address] [facility] Start: 11-03-2021 History SDOH Social Connections Living [address] [facility] Start: 04-02-2017 Alcohol Comment socially, not while [facility] Start: 1987 Sex Assigned At Not on file [facility] Start: 11-03-2021 End: 10-24-2024 History of Social function [facility] Start: 11-03-2021 End: 10-24-2024 Social connection and isolation panel [facility] Do you belong to any clubs or organizations such as caodaism groups, unions, fraternal or athletic groups, or school groups? No [facility] How often do you att end meetings of the clubs or organizations you belong to? Patient refused [facility] Are you now , , , , never or living with a partner? [facility] How often to you hav e a drink containing alcohol? Monthly or less [facility] How many standard dr inks containing alcohol do you have on a typical day? 1 or [address] [facility] How often do you hav e 6 or more drinks on 1 occasion? Never [facility] Do you feel stress - tense, restless, nervous, or anxious, or unable to sleep at night because your mind is troubled all the time - these days [OSQ] Not at all [facility] (I/We) worried deniz tapia (my/our) food would run out before (I/we) got money to buy more. Never true [facility] Start: 05-23-2024 Alcohol Comment socially [facility] Are you now , , , , never or living with a partner? [facility] How often to you hav e a drink containing alcohol? 2-4 times a month [facility] Do you feel stress - tense, restless, nervous, or anxious, or unable to sleep at night because your mind is troubled all the time - these days [OSQ] Only a little [facility] Functional Status Date Assessment Result Facility 03-23-2015 Are you deaf, or do you have serious difficulty hearing No 03/23/2015 10:22 AM Cira Longoria MA No [facility] 03-23-2015 Are you blind, or do you have serious difficulty seeing, even when wearing glasses No 03/23/2015 10:22 AM Cira Longoria MA No [facility] 03-23-2015 Do you have serious difficulty walking or climbing stairs No 03/23/2015 10:22 AM EDT Cira Braxton MA No [facility] 03-23-2015 Do you have difficul ty dressing or bathing No 03/23/2015 10:22 AM EDT Cira Braxton MA No [facility] 03-23-2015 Because of a physica l, mental, or emotional condition, do you have difficulty doing errands alone such as visiting a physician's office or shopping No 03/23/2015 10:22 AM EDT Cira Braxton MA No [facility] Mental Status Date Assessment Result Facility 03-23-2015 Because of a physica l, mental, or emotional condition, do you have serious difficulty concentrating, remembering, or making decisions No 03/23/2015 10:22 AM EDT Cira Braxton MA No [facility] Clinical Notes 12-20-2020 to 02-02-2025 Patient InstructionsSamuel Hart MD - 02/02/2025 11:04 AM EDTTelephone Encounter - Felicita Virgen APRN.SAYDA - 11/28/2024 4:12 PM EDTFTiffani estrella LPN - 10/31/2024 11:42 AM EST Note Date & Type Note Facility 02-02-2025 Instructions Samuel Hart MD - 02/02/2025 11:51 AM EDT Minimizing irritation of the vulva (area around the vagina) Wear white cotton underwear. Avoid synthetic fabrics and tight clothing. Sleep wearing shorts or pajama bottoms without underwear. Shower as soon as possible after exercise. Avoid clothing detergents and soaps with perfumes or dyes. Use warm (not hot) water to wash the vulva and if you use soap use a product designed for sensitive skin (like Dove or Cetaphil). Do not douche or use creams/powders in the vulvar area unless instructed by your physician. If you must douche, use only plain warm water. Make sure the vulva is dry before dressing by patting dry with a towel. Avoid vigorous rubbing with the towel. You may want to use the blow dryer (on the cool setting only!) on the vulva. The most important way to let your body heal is by avoiding scratching. Many patients find it difficult to avoid scratching at night when they are most aware of the itchiness. You can try taking Benadryl just before bedtime. Some women find it helpful to wear cotton gloves to bed to avoid scratching at night. documented in this encounter [facility] 02-02-2025 Note HNO ID: [id number] Author: SAMUEL HART MD Service: ? Author Type: Physician Type: Progress Notes Filed: 02/02/2025 11:51 Note Text: Batch And Furnace Manager offered: Patient declines. Maliha Ibarra is a 39 year old female who presents for problem visit - vaginal discharge. HPI: Vaginal discharge and itching for several days. Used Monistat 1 day with some relief in her symptoms, but symptoms have since returned. Sexually active. She has no concerns regarding STD. No other GI or symptoms. OB History Gravida3 Para3 Term3 Preterm0 AB0 Living3 SAB0 IAB0 Ectopic0 Multiple0 Live Births3 Senior Data Integration Developer History LMP: 01/17/2025 (Within Days), Having periods Age at Menarche: Age at First : Age at Menopause: Senior Data Integration Developer History Comments: Sexual Activity: Yes; Male Contraception: Pill PAST MEDICAL HISTORY Diagnosis Date Allergic rhinitis, cause unspecified Asthma ([facility]) athletic childhood asthma Chiari I malformation ([facility]) 05/08/14 Chlamydia 2010 Enlarged pituitary gland ([facility]) 04/17/2014 Unspecified asthma(493.90) PAST SURGICAL HISTORY Procedure Laterality Date ANESTH, SECTION DELIVERY ONLY 03/09/2015 Primary C/S for Chiari I Malformation DELIVERY ONLY 11/23/2017 DELIVERY ONLY 01/10/2021 LTCS TOOTH EXTRACTION [place] teeth x four FAMILY HISTORY Adopted: Yes Problem Relation Age of Onset Hypertension Mother Heart Father atrial fib Breast Cancer Maternal Grandmother Heart Maternal Grandmother Hypertension Maternal Grandfather Heart Paternal Grandmother Hypertension Paternal Grandmother other (Celina Gehrig disease) Paternal Grandfather other (MS) Paternal Aunt other (MS) Paternal Uncle Social History Tobacco Use Smoking status: Never Smokeless tobacco: Never Vaping Use Vaping status: Never Used Substance Use Topics Alcohol use: Yes Comment: socially Drug use: Never Current Outpatient Medications Medication Sig sertraline (ZOLOFT) 25 mg tablet Take 1 tablet by mouth once daily. traZODone (DESYREL) 50 mg tablet Take 1 tablet by mouth daily at bedtime. norgestimate 0.25 mg-ethinyl estradiol 35 mcg 0.25-35 mg-mcg per tablet Take 1 tablet by mouth once daily. No current facility-administered medications for this visit. Allergies As of Date: 02/02/2025 Allergen Noted Reaction CATS 07/19/2005 DOGS 07/19/2005 Fully Assessed 02/02/2025 REVIEW OF SYSTEMS Expanded ROS: No fevers, chills, pelvic pain, nausea, vomiting. Allergies and current medication updated:Yes SENSITIVE EXAM: The sensitive examination was discussed with the Patient or Patient's Authorized Development Technical Lead. As applicable, any other physician, advance practice provider, medical student, or other health professional student that will be observing or involved in the sensitive examination for educational or training purposes was discussed with the Patient or Authorized Development Technical Lead. The Patient or Authorized Development Technical Lead has agreed to proceed with the sensitive examination. (Sensitive examination includes inspection and/or palpation of the breasts, pelvis, prostate and anorectal regions). EXAM: BP 100/68 Wt 139 lb 6.4 oz (63.2kg) LMP 01/17/2025 GENERAL: pleasant, female in no apparent distress HEENT: Normocephalic and atraumatic NECK: full range of motion CHEST: Normal inspiratory effort ABDOMEN: soft and non-tender PELVIC: external genitalia normal, normal Bartholin's glands, urethra, Blum[place]ard Colony's glands, no vulvar lesions, no cervical lesions, good vaginal support, physiologic discharge present, normal appearing perineal body and perianal region, non tender NEURO: exam grossly non-focal EXTREMITIES: normal ASSESSMENT AND PLAN: Assessment AND Plan Vaginal discharge Orders: BACTERIAL VAGINOSIS NAAT ESTRELLA/TRICHOMONAS NAAT Check BV, yeast. Reviewed vulvar care and hygiene measures. Patient desires Diflucan if yeast infection. Samuel Hart, Medical Decision Making: Problems: Low: Acute, uncomplicated illness or injury Data: Unique test(s) ordered: 2 Medical Decision Making Level: 3 - Low [facility] 02-02-2025 History of Presen t illness Narrative Batch And Furnace Manager offered: Patient declines. Maliha Ibarra is a 39 year old female who presents for problem visit - vaginal discharge. HPI: Vaginal discharge and itching for several days. Used Monistat 1 day with some relief in her symptoms, but symptoms have since returned. Sexually active. She has no concerns regarding STD. No other GI or symptoms. OB History Gravida3 Para3 Term3 Preterm0 AB0 Living3 SAB0 IAB0 Ectopic0 Multiple0 Live Births3 Senior Data Integration Developer History LMP: 01/17/2025 (Within Days), Having periods Age at Menarche: Age at First : Age at Menopause: Senior Data Integration Developer History Comments: Sexual Activity: Yes; Male Contraception: Pill PAST MEDICAL HISTORY Diagnosis Date Allergic rhinitis, cause unspecified Asthma ([facility]) athletic childhood asthma Chiari I malformation ([facility]) 05/08/14 Chlamydia 2009 Enlarged pituitary gland ([facility]) 04/17/2014 Unspecified asthma(493.90) PAST SURGICAL HISTORY Procedure Laterality Date ANESTH, SECTION DELIVERY ONLY 03/09/2015 Primary C/S for Chiari I Malformation DELIVERY ONLY 11/23/2017 DELIVERY ONLY 01/10/2021 LTCS TOOTH EXTRACTION Bradd[place] teeth x four FAMILY HISTORY Adopted: Yes Problem Relation Age of Onset Hypertension Mother Heart Father atrial fib Breast Cancer Maternal Grandmother Heart Maternal Grandmother Hypertension Maternal Grandfather Heart Paternal Grandmother Hypertension Paternal Grandmother other (Celina Gehrig disease) Paternal Grandfather other (MS) Paternal Aunt other (MS) Paternal Uncle Social History Tobacco Use Smoking status: Never Smokeless tobacco: Never Vaping Use Vaping status: Never Used Substance Use Topics Alcohol use: Yes Comment: socially Drug use: Never Current Outpatient Medications Medication Sig sertraline (ZOLOFT) 25 mg tablet Take 1 tablet by mouth once daily. traZODone (DESYREL) 50 mg tablet Take 1 tablet by mouth daily at bedtime. norgestimate 0.25 mg-ethinyl estradiol 35 mcg 0.25-35 mg-mcg per tablet Take 1 tablet by mouth once daily. No current facility-administered medications for this visit. Allergies As of Date: 02/02/2025 Allergen Noted Reaction CATS 07/19/2005 DOGS 07/19/2005 Fully Assessed 02/02/2025 REVIEW OF SYSTEMS Expanded ROS: No fevers, chills, pelvic pain, nausea, vomiting. Allergies and current medication updated:Yes SENSITIVE EXAM: The sensitive examination was discussed with the Patient or Patient's Authorized Development Technical Lead. As applicable, any other physician, advance practice provider, medical student, or other health professional student that will be observing or involved in the sensitive examination for educational or training purposes was discussed with the Patient or Authorized Development Technical Lead. The Patient or Authorized Development Technical Lead has agreed to proceed with the sensitive examination. (Sensitive examination includes inspection and/or palpation of the breasts, pelvis, prostate and anorectal regions). EXAM: BP 100/68 Wt 139 lb 6.4 oz (63.2kg) LMP 01/17/2025 GENERAL: pleasant, female in no apparent distress HEENT: Normocephalic and atraumatic NECK: full range of motion CHEST: Normal inspiratory effort ABDOMEN: soft and non-tender PELVIC: external genitalia normal, normal Bartholin's glands, urethra, Blum[place]ard Colony's glands, no vulvar lesions, no cervical lesions, good vaginal support, physiologic discharge present, normal appearing perineal body and perianal region, non tender NEURO: exam grossly non-focal EXTREMITIES: normal ASSESSMENT AND PLAN: Assessment & Plan Vaginal discharge Orders: BACTERIAL VAGINOSIS NAAT ESTRELLA/TRICHOMONAS NAAT Check BV, yeast. Reviewed vulvar care and hygiene measures. Patient desires Diflucan if yeast infection. Samuel Hart, Medical Decision Making: Problems: Low: Acute, uncomplicated illness or injury Data: Unique test(s) ordered: 2 Medical Decision Making Level: 3 - Low documented in this encounter [facility] 12-22-2024 Note HNO ID: [id number] Author: AYLA ALVES APRN.CNM Service: ? Author Type: Java Lead Engineer Type: Progress Notes Filed: 12/22/2024 09:40 Note Text: Maliha Ibarra is a 39 year old female who presents for problem visit for STD testing HPI: Presents today with concerns for recent unprotected intercourse and would like STD screening. Having some vaginal irritation and wanted to get checked out. Declines testing for serum STD screening today. Taking OCP and no concerns for at this time. OB History Gravida3 Para3 Term3 Preterm0 AB0 Living3 SAB0 IAB0 Ectopic0 Multiple0 Live Births3 Senior Data Integration Developer History LMP: 11/25/2024 (Within Days), Having periods Age at Menarche: Age at First : Age at Menopause: Senior Data Integration Developer History Comments: Sexual Activity: Yes; Male Contraception: Pill PAST MEDICAL HISTORY Diagnosis Date Allergic rhinitis, cause unspecified Asthma ([facility]) athletic childhood asthma Chiari I malformation ([facility]) 05/08/14 Chlamydia 2010 Enlarged pituitary gland ([facility]) 04/17/2014 Unspecified asthma(493.90) PAST SURGICAL HISTORY Procedure Laterality Date ANESTH, SECTION DELIVERY ONLY 03/09/2015 Primary C/S for Chiari I Malformation DELIVERY ONLY 11/23/2017 DELIVERY ONLY 01/10/2021 [facility]CS TOOTH EXTRACTION Braddock teeth x four FAMILY HISTORY Adopted: Yes Problem Relation Age of Onset Hypertension Mother Heart Father atrial fib Breast Cancer Maternal Grandmother Heart Maternal Grandmother Hypertension Maternal Grandfather Heart Paternal Grandmother Hypertension Paternal Grandmother other (Celina Gehrig disease) Paternal Grandfather other (MS) Paternal Aunt other (MS) Paternal Uncle Social History Tobacco Use Smoking status: Never Smokeless tobacco: Never Vaping Use Vaping status: Never Used Substance Use Topics Alcohol use: Yes Comment: socially Drug use: Never Current Outpatient Medications Medication Sig sertraline (ZOLOFT) 25 mg tablet Take 1 tablet by mouth once daily. traZODone (DESYREL) 50 mg tablet Take 1 tablet by mouth daily at bedtime. norgestimate 0.25 mg-ethinyl estradiol 35 mcg 0.25-35 mg-mcg per tablet Take 1 tablet by mouth once daily. No current facility-administered medications for this visit. Allergies As of Date: 12/22/2024 Allergen Noted Reaction CATS 07/19/2005 DOGS 07/19/2005 Fully Assessed 12/22/2024 REVIEW OF SYSTEMS Abdomen: No bloating, early satiety, indigestion, or increased flatulence. No abdominal pain, nausea, vomiting, diarrhea, or constipation. Bladder: No dysuria, gross hematuria, urinary frequency, urinary urgency, or incontinence. Breast: No breast lumps, nipple d/c, overlying skin changes, redness or skin retraction. Expanded ROS: N/A Allergies and current medication updated:Yes SENSITIVE EXAM: The sensitive examination was discussed with the Patient or Patient's Authorized Development Technical Lead. As applicable, any other physician, advance practice provider, medical student, or other health professional student that will be observing or involved in the sensitive examination for educational or training purposes was discussed with the Patient or Authorized Development Technical Lead. The Patient or Authorized Development Technical Lead has agreed to proceed with the sensitive examination. (Sensitive examination includes inspection and/or palpation of the breasts, pelvis, prostate and anorectal regions). EXAM: BP 112/70 Ht 5' 7 (1.70m) Wt 142 lb (64.4kg) LMP 11/25/2024 BMI 22.24 kg/(m2). GENERAL: pleasant, female in no apparent distress HEENT: Normocephalic and atraumatic NECK: Supple and full range of motion DERMATOLOGY: Normal and without lesions PELVIC: external genitalia normal, normal Bartholin's glands, urethra, [place]'s glands, no vulvar lesions, no cervical lesions, good vaginal support, physiologic discharge present, normal appearing perineal body and perianal region BIMANUAL: deferred NEURO: alert and oriented x3,exam grossly non-focal EXTREMITIES: normal ASSESSMENT AND PLAN: Assessment AND Plan Screening for STDs (sexually transmitted diseases) Orders: BACTERIAL VAGINOSIS NAAT ESTRELLA/TRICHOMONAS NAAT GONORRHEA/CHLAMYDIA NAAT Ayla Alves APRN.CNM [facility] 11-28-2024 Telephone encounter Note Can you please call the patient and let her know that I reviewed her ZIO monitor results. Monitor showed 2 runs of SVT. This is when the heart beats very quickly. This can cause the feeling of palpitations or may cause dizziness. If she is still having ongoing symptoms that are bothersome she may consider starting a beta-ron to help with heart rate. I would still recommend that she have a consult with cardiology. If she is agreeable we can complete the cardiac workup by ordering an echocardiogram which is an ultrasound of the heart. I would like her to be mindful with caffeine use and stay well-hydrated. Please let the office know if she has any questions. Felicita Virgen APRN.SAYDA [facility] 11-28-2024 Miscellaneous Notes Can you please call the patient and let her know that I reviewed her ZIO monitor results. Monitor showed 2 runs of SVT. This is when the heart beats very quickly. This can cause the feeling of palpitations or may cause dizziness. If she is still having ongoing symptoms that are bothersome she may consider starting a beta-ron to help with heart rate. I would still recommend that she have a consult with cardiology. If she is agreeable we can complete the cardiac workup by ordering an echocardiogram which is an ultrasound of the heart. I would like her to be mindful with caffeine use and stay well-hydrated. Please let the office know if she has any questions. Felicita Virgen APRN.SAYDA documented in this encounter [facility] 10-31-2024 Note HNO ID: [id number] Author: TIFFANI OREILLY LPN Service: ? Author Type: LICENSED NURSE Type: Progress Notes Filed: 10/31/2024 11:43 Note Text: EVENT MONITOR DISPOSABLE PATCH INSTRUCTIONS Patient Name: Maliha Nicholasivelisse [facility] Number: [id number] Skin prepped and cleansed with alcohol Patch secured to prepped area Monitor Activated Serial #: [id number] Patient Instructed: Prescribed order timeframe Bathing guidelines Usage of event button and diary documentation Return of monitor at the end of prescribed order Call with problems [phone] or [phone] ext. [phone] Patient expresses a good understanding of instructions Tiffani Oreilly LPN [facility] 10-31-2024 History of Presen t illness Narrative EVENT MONITOR DISPOSABLE PATCH INSTRUCTIONS Patient Name: Maliha Ibarra [facility] Number: [id number] Skin prepped and cleansed with alcohol Patch secured to prepped area Monitor Activated Serial #: [id number] Patient Instructed: Prescribed order timeframe Bathing guidelines Usage of event button and diary documentation Return of monitor at the end of prescribed order Call with problems [phone] or [phone] ext. [phone] Patient expresses a good understanding of instructions Tiffani Oreilly LPN This is a 39 year old female who presents today with: Patient presents with: Acute Visit: Heart palpitations HISTORY OF PRESENT ILLNESS: Maliha Ibarra is a 39 year old female. Patient presents with: Acute Visit: Heart palpitations Here in the office for palpitations. Previous ECG completed in 2013. Had labs completed recently, CBC, CMP, TSH, and lipids all normal. Has significant family cardiac history. Reports she gets random dizziness throughout the day. Denies chest pain and dizziness with palpitations. Having increased anxiety due to going through a divorce. Mind is racing at night when trying to get to sleep. Having difficulty falling asleep and staying asleep. Getting approx 3-4 hours of sleep a night. Will feel fluttering at night while sleeping. No LOC. PAST MEDICAL HISTORY: PAST MEDICAL HISTORY Diagnosis Date Allergic rhinitis, cause unspecified Asthma athletic childhood asthma Chiari I malformation ([facility]) 05/08/14 Chlamydia 2009 Enlarged pituitary gland ([facility]) 04/17/2014 Unspecified asthma(493.90) PAST SURGICAL HISTORY Procedure Laterality Date ANESTH, SECTION DELIVERY ONLY 03/09/2015 Primary C/S for Chiari I Malformation DELIVERY ONLY 11/23/2017 DELIVERY ONLY 01/10/2021 [facility] TOOTH EXTRACTION [place] teeth x four ALLERGIES Cats and Dogs MEDICATIONS Current Outpatient Medications Medication Sig norgestimate 0.25 mg-ethinyl estradiol 35 mcg 0.25-35 mg-mcg per tablet Take 1 tablet by mouth once daily. No current facility-administered medications for this visit. FAMILY HISTORY Adopted: Yes Problem Relation Age of Onset Hypertension Mother Heart Father atrial fib Breast Cancer Maternal Grandmother Heart Maternal Grandmother Hypertension Maternal Grandfather Heart Paternal Grandmother Hypertension Paternal Grandmother other (Celina Gehrig disease) Paternal Grandfather other (MS) Paternal Aunt other (MS) Paternal Uncle Social History Tobacco Use Smoking status: Never Smokeless tobacco: Never Vaping Use Vaping status: Never Used Substance Use Topics Alcohol use: Yes Comment: socially Drug use: Never REVIEW OF SYSTEMS GENERAL: No weight loss, malaise or fevers/chills HEENT: Negative for frequent or significant headaches, No changes in hearing or vision. NECK: Negative for lumps, goiter, pain and significant neck swelling RESPIRATORY: Negative for cough, hemoptysis, wheezing, dyspnea or shortness of breath CARDIOVASCULAR: + Palpitations GI: No nausea, vomiting, or diarrhea/constipation. No hematochezia/melena. No heartburn or reflux symptoms. : No history of dysuria, frequency or incontinence MUSCULOSKELETAL: Negative for joint pain or swelling. SKIN: Negative for lesions, rash, and itching ENDOCRINE: Negative for cold or heat intolerance, polyuria, polydipsia and goiter NEURO: No history of headaches, syncope, paralysis, seizures or tremors MOOD: Negative for depression, anxiety, or suicidal ideation. EXAM: BP 110/78 Pulse 80 Resp 16 Wt 63.5 kg (140 lb) LMP 10/28/2024 SpO2 99% BMI 22.42 kg/m PHYSICAL EXAM: General Appearance: Well appearing, alert, in no acute distress, well-hydrated, well nourished. Skin: Skin color, texture, turgor normal, no suspicious rashes or lesions. Head: Normocephalic, no masses, lesions, tenderness or abnormalities. Eyes: Anicteric sclera. Extraocular movements are intact. Lungs: Lungs clear to auscultation. No wheezing, rhonchi, rales. Heart: RRR without murmur, gallop, or rubs. No ectopy. Extremities: No deformities, edema, skin discoloration, clubbing or cyanosis. Good capillary refill. Peripheral Pulses: Normal, Capillary refill <2secs, strong peripheral pulses, Pulses palpable. Neurologic: Gait normal. Sensation grossly intact. ECG: NSR, no ectopy, or ST elevation/depression Latest Ref Rn 10/25/2024 Protein, Total 6.3 - 8.0 g/dL 7.5 Albumin 3.9 - 4.9 g/dL 4.4 Calcium 8.5 - 10.2 mg/dL 9.4 Bilirubin, Total 0.2 - 1.3 mg/dL 0.7 Alkaline Phosphatase 34 - 123 U/L 62 AST 13 - 35 U/L 24 ALT 7 - 38 U/L 19 Glucose 74 - 99 mg/dL 85 BUN 7 - 21 mg/dL 11 Creatinine 0.58 - 0.96 mg/dL 0.94 Sodium 136 - 144 mmol/L 138 Potassium 3.7 - 5.1 mmol/L 4.3 Chloride 98 - 107 mmol/L 103 CO2 22 - 30 mmol/L 26 Anion Gap 8 - 15 mmol/L 9 eGFR >=60 mL/min/1.73m 80 WBC 3.70 - 11.00 k/uL 7.51 RBC 3.90 - 5.20 m/uL 4.81 Hemoglobin 11.5 - 15.5 g/dL 14.9 Hematocrit 36.0 - 46.0 % 44.0 MCV 80.0 - 100.0 fL 91.5 MCH 26.0 - 34.0 pg 31.0 MCHC 30.5 - 36.0 g/dL 33.9 RDW-CV 11.5 - 15.0 % 12.4 Platelet Count 150 - 400 k/uL 254 MPV 9.0 - 12.7 fL 9.8 Absolute nRBC <0.01 k/uL <0.01 Cholesterol, Total <200 mg/dL 178 Triglyceride <150 mg/dL 98 HDL Cholesterol >39 mg/dL 69 Non HDL Cholesterol <130 mg/dL 109 Fasting Time hrs 12 VLDL Cholesterol <30 mg/dL 20 TC:HDL Ratio <5.10 2.58 LDL Cholesterol <100 mg/dL 89 LDL:HDL Ratio <2.54 1.29 TSH 0.270 - 4.200 mIU/L 1.070 ASSESSMENT/PLAN: 1. Palpitations - ICD9: 785.1, ICD10: R00.2 (primary diagnosis) - ECG WNL in office today - Zio monitor placed - Instructed to stay well-hydrated and be mindful with caffeine. - Would like to wait to complete echo until ZIO monitor results are reviewed. - Red flag symptoms given to patient, she verbalizes understanding when to seek care. - ECG COMPLETE - OUTSIDE VENDOR CARDIAC OUTPATIENT EXTENDED RHYTHM RECORDING (WITHOUT TELEMETRY) 2. Anxiety with depression - ICD9: 300.4, ICD10: F41.8 - Start Zoloft 25 mg daily. May increase to 50 mg in 2 to 3 weeks. - May use trazodone as needed for sleep. - Recommend establishing care with counselor. - SERTRALINE 25 MG TABLET - TRAZODONE 50 MG TABLET 3. Screening for depression - ICD9: V79.0, ICD10: Z13.31 - DEPRESSION SCREENING 4. Encounter for screening examination for other mental health and behavioral disorders - ICD9: V79.8, ICD10: Z13.39 - ANXIETY SCREENING Follow-up in 1 month or sooner as needed Discussed treatment plan and patient voices understanding. Patient's questions answered appropriately. Medications and potential side effects were discussed and patient voices understanding. Felicita Virgen APRN.CNP This note was partially generated using [employer] voice recognition system. Note was reviewed for accuracy. There may be minor misspellings or grammar miscues with [employer] voice recognition. documented in this encounter [facility] 10-31-2024 Instructions Felicita Virgen APRN.CNP - 10/31/2024 11:28 AM EST Start Zoloft/Sertraline 25 mg for the first week, may increase to 50 mg week 2 if needed Start Trazodone 50 mg, Cut tablet in 1/2 and take 25 mg to start, if in 1 hour medication is not helping you fall asleep may take the other 1/2 tablet Wear Zio monitor for 14 days for palpitations Message office if anxiety is not getting better may need to add Buspar as needed. Follow up in 1 month documented in this encounter [facility] 10-31-2024 Note HNO ID: [id number] Author: FELICITA VIRGEN APRN.CNP Service: ? Author Type: Nurse Practitioner Type: Progress Notes Filed: 10/31/2024 12:22 Note Text: This is a 39 year old female who presents today with: Patient presents with: Acute Visit: Heart palpitations HISTORY OF PRESENT ILLNESS: Maliha Ibarra is a 39 year old female. Patient presents with: Acute Visit: Heart palpitations Here in the office for palpitations. Previous ECG completed in 2013. Had labs completed recently, CBC, CMP, TSH, and lipids all normal. Has significant family cardiac history. Reports she gets random dizziness throughout the day. Denies chest pain and dizziness with palpitations. Having increased anxiety due to going through a divorce. Mind is racing at night when trying to get to sleep. Having difficulty falling asleep and staying asleep. Getting approx 3-4 hours of sleep a night. Will feel fluttering at night while sleeping. No LOC. PAST MEDICAL HISTORY: PAST MEDICAL HISTORY Diagnosis Date Allergic rhinitis, cause unspecified Asthma athletic childhood asthma Chiari I malformation ([facility]) 05/08/14 Chlamydia 2009 Enlarged pituitary gland ([facility]) 04/17/2014 Unspecified asthma(493.90) PAST SURGICAL HISTORY Procedure Laterality Date ANESTH, SECTION DELIVERY ONLY 03/09/2015 Primary C/S for Chiari I Malformation DELIVERY ONLY 11/23/2017 DELIVERY ONLY 01/10/2021 [facility] TOOTH EXTRACTION [place] teeth x four ALLERGIES Cats and Dogs MEDICATIONS Current Outpatient Medications Medication Sig norgestimate 0.25 mg-ethinyl estradiol 35 mcg 0.25-35 mg-mcg per tablet Take 1 tablet by mouth once daily. No current facility-administered medications for this visit. FAMILY HISTORY Adopted: Yes Problem Relation Age of Onset Hypertension Mother Heart Father atrial fib Breast Cancer Maternal Grandmother Heart Maternal Grandmother Hypertension Maternal Grandfather Heart Paternal Grandmother Hypertension Paternal Grandmother other (Celina Gehrig disease) Paternal Grandfather other (MS) Paternal Aunt other (MS) Paternal Uncle Social History Tobacco Use Smoking status: Never Smokeless tobacco: Never Vaping Use Vaping status: Never Used Substance Use Topics Alcohol use: Yes Comment: socially Drug use: Never REVIEW OF SYSTEMS GENERAL: No weight loss, malaise or fevers/chills HEENT: Negative for frequent or significant headaches, No changes in hearing or vision. NECK: Negative for lumps, goiter, pain and significant neck swelling RESPIRATORY: Negative for cough, hemoptysis, wheezing, dyspnea or shortness of breath CARDIOVASCULAR: + Palpitations GI: No nausea, vomiting, or diarrhea/constipation. No hematochezia/melena. No heartburn or reflux symptoms. : No history of dysuria, frequency or incontinence MUSCULOSKELETAL: Negative for joint pain or swelling. SKIN: Negative for lesions, rash, and itching ENDOCRINE: Negative for cold or heat intolerance, polyuria, polydipsia and goiter NEURO: No history of headaches, syncope, paralysis, seizures or tremors MOOD: Negative for depression, anxiety, or suicidal ideation. EXAM: BP 110/78 Pulse 80 Resp 16 Wt 63.5 kg (140 lb) LMP 10/28/2024 SpO2 99% BMI 22.42 kg/m? PHYSICAL EXAM: General Appearance: Well appearing, alert, in no acute distress, well-hydrated, well nourished. Skin: Skin color, texture, turgor normal, no suspicious rashes or lesions. Head: Normocephalic, no masses, lesions, tenderness or abnormalities. Eyes: Anicteric sclera. Extraocular movements are intact. Lungs: Lungs clear to auscultation. No wheezing, rhonchi, rales. Heart: RRR without murmur, gallop, or rubs. No ectopy. Extremities: No deformities, edema, skin discoloration, clubbing or cyanosis. Good capillary refill. Peripheral Pulses: Normal, Capillary refill <2secs, strong peripheral pulses, Pulses palpable. Neurologic: Gait normal. Sensation grossly intact. ECG: NSR, no ectopy, or ST elevation/depression Latest Ref [facility] 10/25/2024 Protein, Total 6.3 - 8.0 g/dL 7.5 Albumin 3.9 - 4.9 g/dL 4.4 Calcium 8.5 - 10.2 mg/dL 9.4 Bilirubin, Total 0.2 - 1.3 mg/dL 0.7 Alkaline Phosphatase 34 - 123 U/L 62 AST 13 - 35 U/L 24 ALT 7 - 38 U/L 19 Glucose 74 - 99 mg/dL 85 BUN 7 - 21 mg/dL 11 Creatinine 0.58 - 0.96 mg/dL 0.94 Sodium 136 - 144 mmol/L 138 Potassium 3.7 - 5.1 mmol/L 4.3 Chloride 98 - 107 mmol/L 103 CO2 22 - 30 mmol/L 26 Anion Gap 8 - 15 mmol/L 9 eGFR >=60 mL/min/1.73m? 80 WBC 3.70 - 11.00 k/uL 7.51 RBC 3.90 - 5.20 m/uL 4.81 Hemoglobin 11.5 - 15.5 g/dL 14.9 Hematocrit 36.0 - 46.0 % 44.0 MCV 80.0 - 100.0 fL 91.5 MCH 26.0 - 34.0 pg 31.0 MCHC 30.5 - 36.0 g/dL 33.9 RDW-CV 11.5 - 15.0 % 12.4 Platelet Count 150 - 400 k/uL 254 MPV 9.0 - 12.7 fL 9.8 Absolute nRBC <0.01 k/uL <0.01 Cholesterol, Total <200 mg/dL 178 Triglyceride <150 mg/dL 98 HDL Cholesterol >39 mg/dL (more content not included)... [facility] 10-31-2024 Note HNO ID: [id number] Author: AALIYAH CHRISTENSEN MD Service: ? Author Type: Physician Type: Procedures Filed: 11/19/2024 13:44 Note Text: Patient Name: Maliha Ibarra : 1985 Ordering Provider: FELICITA VIRGEN Indication: R00.2 Palpitations Type of Monitor: Extended Monitoring-Zio Patch Enrollment Dates: 10/31/2024-11/14/2024 IRHYTHM FINDINGS: Patient had a min HR of 56 bpm, max HR of 185 bpm, and avg HR of 94 bpm. Predominant underlying rhythm was Sinus Rhythm. 2 Supraventricular Tachycardia runs occurred, the run with the fastest interval lasting 11.2 secs with a max rate of 185 bpm (avg 158 bpm); the run with the fastest interval was also the longest. Supraventricular Tachycardia was detected within +/- 45 seconds of symptomatic patient event(s). Isolated SVEs were rare (<1.0%), SVE Couplets were rare (<1.0%), and no SVE Triplets were present. Isolated VEs were rare (<1.0%), VE Couplets were rare (<1.0%), and no VE Triplets were present. [facility] 10-17-2024 Telephone encounter Note Pt notified that fasting labs have been ordered to complete prior to Wellness visit as scheduled. Pt notified through [employer]. Marii Beauchamp MA [facility] 10-17-2024 Miscellaneous Notes Pt notified that fasting labs have been ordered to complete prior to Wellness visit as scheduled. Pt notified through [employer]. Marii Beauchamp MA Labs ordered Cee Guerra MD Pt reports she scheduled appt for today because her dad is currently in a-fib and uncle is in the hospital right now with maker. Their doctors advised patient to see her doctor due to their hx. Pt reports for the past year she has had episodes of heart racing- lasts a couple seconds then goes away. Exercise does not trigger it, nothing triggers it. Does not have any other symptoms. Protocol recommends see provider in 2 weeks. Scheduled physical 2 weeks out. Pt reports she has not had labs done in a long time. Asking pcp to order labs for patient to complete prior to appt. Please phone patient to let her know when orders are in the lab. Reason for Disposition Palpitations are a chronic symptom (recurrent or ongoing AND present > 4 weeks) Answer Assessment - Initial Assessment Questions 1. DESCRIPTION: Reports last week she was sleeping and woke up with her feeling like a flutter. A couple brief seconds of it going fast then goes away. A couple days ago felt fast for a couple seconds then went away. No other symptoms. 2. ONSET: Maybe throughout this past year. 3. DURATION: A second or two. 4. PATTERN Not often, not daily, sporatic throughout past year. Maybe every couple weeks or once or twice a month. 5. TAP: N/A 6. HEART RATE: This morning POX read 98 to 85. 7. RECURRENT SYMPTOM: Happening off / on for past year. 8. CAUSE: Family hx of heart concerns. Dad and uncle recently having heart concerns. Dad is in a-fib. Uncle in hospital right now with maker. Their doctors suggested patient see her doctor. 9. CARDIAC HISTORY: No heart hx for patient. 10. OTHER SYMPTOMS:No other symptoms. 11. : No. Protocols used: Heart Rate and Heartbeat [id number] documented in this encounter [facility] 10-17-2024 Telephone encounter Note Labs ordered Cee Guerra MD [facility] 10-17-2024 Telephone encounter Note Pt reports she scheduled appt for today because her dad is currently in a-fib and uncle is in the hospital right now with maker. Their doctors advised patient to see her doctor due to their hx. Pt reports for the past year she has had episodes of heart racing- lasts a couple seconds then goes away. Exercise does not trigger it, nothing triggers it. Does not have any other symptoms. Protocol recommends see provider in 2 weeks. Scheduled physical 2 weeks out. Pt reports she has not had labs done in a long time. Asking pcp to order labs for patient to complete prior to appt. Please phone patient to let her know when orders are in the lab. Reason for Disposition Palpitations are a chronic symptom (recurrent or ongoing AND present > 4 weeks) Answer Assessment - Initial Assessment Questions 1. DESCRIPTION: Reports last week she was sleeping and woke up with her feeling like a flutter. A couple brief seconds of it going fast then goes away. A couple days ago felt fast for a couple seconds then went away. No other symptoms. 2. ONSET: Maybe throughout this past year. 3. DURATION: A second or two. 4. PATTERN Not often, not daily, sporatic throughout past year. Maybe every couple weeks or once or twice a month. 5. TAP: N/A 6. HEART RATE: This morning POX read 98 to 85. 7. RECURRENT SYMPTOM: Happening off / on for past year. 8. CAUSE: Family hx of heart concerns. Dad and uncle recently having heart concerns. Dad is in a-fib. Uncle in hospital right now with maker. Their doctors suggested patient see her doctor. 9. CARDIAC HISTORY: No heart hx for patient. 10. OTHER SYMPTOMS:No other symptoms. 11. : No. Protocols used: Heart Rate and Heartbeat [id number] [facility] 05-23-2024 History of Presen t illness Narrative Batch And Furnace Manager offered: Patient declines. Maliha is a 38 year old who presents for an annual gynecologic exam without complaints. 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 Menses: cycles every 28-30 days and 3 days of flow. Contraception: norgestimate 0.25 mg-ethinyl estradiol 35 mcg 0.25-35 mg-mcg HPV vaccine: Yes Last Pap: 04/24/2023 normal HPV: 04/18/2023 negative History of abnormal pap: No Last mammogram: never Sexually active: Not currently History of STDS: chlamydia Patient concerns for STD exposure: No. Exercise: mom of 3 OB History T3 L3 SAB0 IAB0 Ectopic0 Multiple0 Live Births3 Senior Data Integration Developer History LMP: 03/16/2023 (Approximate), Unknown Age at Menarche: Age at First : Age at Menopause: Senior Data Integration Developer History Comments: Sexual Activity: Yes; Male Contraception: Pill PAST MEDICAL HISTORY Diagnosis Date Allergic rhinitis, cause unspecified Asthma athletic childhood asthma Chiari I malformation ([facility]) 05/08/14 Chlamydia 2010 Enlarged pituitary gland ([facility]) 04/17/2014 Unspecified asthma(493.90) PAST SURGICAL HISTORY Procedure Laterality Date ANESTH, SECTION DELIVERY ONLY 03/09/2015 Primary C/S for Chiari I Malformation DELIVERY ONLY 11/23/2017 DELIVERY ONLY 01/10/2021 LTCS FAMILY HISTORY Adopted: Yes Problem Relation Age of Onset Hypertension Mother Heart Father atrial fib Breast Cancer Maternal Grandmother Heart Maternal Grandmother Hypertension Maternal Grandfather Heart Paternal Grandmother Hypertension Paternal Grandmother other (Celina Gehrig disease) Paternal Grandfather other (MS) Paternal Aunt other (MS) Paternal Uncle SOCIAL HISTORY Social History Tobacco Use Smoking status: Never Smokeless tobacco: Never Vaping Use Vaping status: Never Used Substance Use Topics Alcohol use: Yes Comment: socially, not while Drug use: No REVIEW OF SYSTEMS Abdomen: No abdominal pain, nausea, vomiting, diarrhea, or constipation. No bloating, early satiety, indigestion, or increased flatulence. Bladder: No dysuria, gross hematuria, urinary frequency, urinary urgency, or incontinence. Breast: No breast lumps, nipple d/c, overlying skin changes, redness or skin retraction. Allergies and current medication updated:Yes SENSITIVE EXAM: The sensitive examination was discussed with the Patient or Patient's Authorized Development Technical Lead. As applicable, any other physician, advance practice provider, medical student, or other health professional student that will be observing or involved in the sensitive examination for educational or training purposes was discussed with the Patient or Authorized Development Technical Lead. The Patient or Authorized Development Technical Lead has agreed to proceed with the sensitive examination. (Sensitive examination includes inspection and/or palpation of the breasts, pelvis, prostate and anorectal regions). EXAM: BP 102/70 Pulse 88 Resp 14 Ht 5' 6.26 (1.68m) Wt 149 lb (67.6kg) SpO2 98% LMP 05/16/2024 BMI 23.86 kg/(m^2). GENERAL: pleasant, female in no apparent distress HEENT: Normocephalic, atraumatic, mucus membranes moist, and no lesions NECK: Supple, full range of motion, no adenopathy, and thyroid normal DERMATOLOGY: Normal, without lesions, non-icteric, and non-hirsute BREAST: soft, non-tender, symmetric, no dominant mass, normal nipple-areolar complex, no lymphadenopathy, and no nipple discharge CHEST: Normal inspiratory effort ABDOMEN: soft, non-tender, and no masses PELVIC: external genitalia normal, normal Bartholin's glands, urethra, [place]'s glands, no vulvar lesions, no cervical lesions, good vaginal support, physiologic discharge present, normal appearing perineal body and perianal region BIMANUAL: uterus normal size, shape and consistency, no adnexal masses, and non-tender RECTOVAGINAL: deferred. NEURO: alert and oriented x3,exam grossly non-focal EXTREMITIES: normal ASSESSMENT/PLAN: 1) Health maintenance: Pap/HPV up to date 2022. Deferred until 2027. Nutrition, exercise and routine health maintenance exams reviewed. HPV vaccine: completed series 2) Contraception: combined hormonal contraceptives. Denies migraines with aura, VTE history or clotting disorder, hypertension, or liver issues. Does not smoke. Reviewed r/b. 3) STD screening: Declined STD check. 4) Follow up one year or sooner as needed Narcisa Morales APRN.SAYDA documented in this encounter [facility] 05-23-2024 Note HNO ID: [id number] Author: NARCISA MORALES APRN.CNP Service: ? Author Type: Nurse Practitioner Type: Progress Notes Filed: 05/23/2024 16:21 Note Text: Batch And Furnace Manager offered: Patient declines. Maliha is a 38 year old who presents for an annual gynecologic exam without complaints. 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 Menses: cycles every 28-30 days and 3 days of flow. Contraception: norgestimate 0.25 mg-ethinyl estradiol 35 mcg 0.25-35 mg-mcg HPV vaccine: Yes Last Pap: 04/24/2023 normal HPV: 04/18/2023 negative History of abnormal pap: No Last mammogram: never Sexually active: Not currently History of STDS: chlamydia Patient concerns for STD exposure: No. Exercise: mom of 3 OB History T3 L3 SAB0 IAB0 Ectopic0 Multiple0 Live Births3 Senior Data Integration Developer History LMP: 03/16/2023 (Approximate), Unknown Age at Menarche: Age at First : Age at Menopause: Senior Data Integration Developer History Comments: Sexual Activity: Yes; Male Contraception: Pill PAST MEDICAL HISTORY Diagnosis Date Allergic rhinitis, cause unspecified Asthma athletic childhood asthma Chiari I malformation ([facility]) 05/08/14 Chlamydia 2010 Enlarged pituitary gland ([facility]) 04/17/2014 Unspecified asthma(493.90) PAST SURGICAL HISTORY Procedure Laterality Date ANESTH, SECTION DELIVERY ONLY 03/09/2015 Primary C/S for Chiari I Malformation DELIVERY ONLY 11/23/2017 DELIVERY ONLY 01/10/2021 [facility] FAMILY HISTORY Adopted: Yes Problem Relation Age of Onset Hypertension Mother Heart Father atrial fib Breast Cancer Maternal Grandmother Heart Maternal Grandmother Hypertension Maternal Grandfather Heart Paternal Grandmother Hypertension Paternal Grandmother other (Celina Gehrig disease) Paternal Grandfather other (MS) Paternal Aunt other (MS) Paternal Uncle SOCIAL HISTORY Social History Tobacco Use Smoking status: Never Smokeless tobacco: Never Vaping Use Vaping status: Never Used Substance Use Topics Alcohol use: Yes Comment: socially, not while Drug use: No REVIEW OF SYSTEMS Abdomen: No abdominal pain, nausea, vomiting, diarrhea, or constipation. No bloating, early satiety, indigestion, or increased flatulence. Bladder: No dysuria, gross hematuria, urinary frequency, urinary urgency, or incontinence. Breast: No breast lumps, nipple d/c, overlying skin changes, redness or skin retraction. Allergies and current medication updated:Yes SENSITIVE EXAM: The sensitive examination was discussed with the Patient or Patient's Authorized Development Technical Lead. As applicable, any other physician, advance practice provider, medical student, or other health professional student that will be observing or involved in the sensitive examination for educational or training purposes was discussed with the Patient or Authorized Development Technical Lead. The Patient or Authorized Development Technical Lead has agreed to proceed with the sensitive examination. (Sensitive examination includes inspection and/or palpation of the breasts, pelvis, prostate and anorectal regions). EXAM: BP 102/70 Pulse 88 Resp 14 Ht 5' 6.26 (1.68m) Wt 149 lb (67.6kg) SpO2 98% LMP 05/16/2024 BMI 23.86 kg/(m2). GENERAL: pleasant, female in no apparent distress HEENT: Normocephalic, atraumatic, mucus membranes moist, and no lesions NECK: Supple, full range of motion, no adenopathy, and thyroid normal DERMATOLOGY: Normal, without lesions, non-icteric, and non-hirsute BREAST: soft, non-tender, symmetric, no dominant mass, normal nipple-areolar complex, no lymphadenopathy, and no nipple discharge CHEST: Normal inspiratory effort ABDOMEN: soft, non-tender, and no masses PELVIC: external genitalia normal, normal Bartholin's glands, urethra, [place]'s glands, no vulvar lesions, no cervical lesions, good vaginal support, physiologic discharge present, normal appearing perineal body and perianal region BIMANUAL: uterus normal size, shape and consistency, no adnexal masses, and non-tender RECTOVAGINAL: deferred. NEURO: alert and oriented x3,exam grossly non-focal EXTREMITIES: normal ASSESSMENT/PLAN: 1) Health maintenance: Pap/HPV up to date 2022. Deferred until 2027. Nutrition, exercise and routine health maintenance exams reviewed. HPV vaccine: completed series 2) Contraception: combined hormonal contraceptives. Denies migraines with aura, VTE history or clotting disorder, hypertension, or liver issues. Does not smoke. Reviewed r/b. 3) STD screening: Declined STD check. 4) Follow up one year or sooner as needed Narcisa Morales APRN.[facility] 05-09-2024 Telephone encounter Note Patient notified. Marissa Mejia RN The following approved medication requests have been transmitted electronically. Requested Prescriptions Signed Prescriptions Disp Refills valACYclovir (VALTREX) 1 gram tablet 21 tablet 0 Sig: Take 1 tablet by mouth three times a day for 7 days. Authorizing Provider: PAYAL JUAREZ norgestimate 0.25 mg-ethinyl estradiol 35 mcg 0.25-35 mg-mcg per tablet 84 tablet 0 Sig: Take 1 tablet by mouth once daily. Authorizing Provider: PAYAL JUAREZ Pharmacy Information Pharmacy Address Telephone [id number] [phone] [facility] 05-09-2024 Miscellaneous Notes Patient notified. Marissa Mejia RN The following approved medication requests have been transmitted electronically. Requested Prescriptions Signed Prescriptions Disp Refills valACYclovir (VALTREX) 1 gram tablet 21 tablet 0 Sig: Take 1 tablet by mouth three times a day for 7 days. Authorizing Provider: PAYAL JUAREZ norgestimate 0.25 mg-ethinyl estradiol 35 mcg 0.25-35 mg-mcg per tablet 84 tablet 0 Sig: Take 1 tablet by mouth once daily. Authorizing Provider: PAYAL JUAREZ Pharmacy Information Pharmacy Address Telephone [id number] [place] [id number] RX sent. Payal Juarez APRN.CNP Annual scheduled for 05/23/24. Patient asking for refill prior to then of OCP. Also she is asking if she can get valacyclovir refill? 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 It has been many many years since last outbreak with it, but she has been under a lot of stress lately. This was previously given to her by PCP- last was 03/31/[address] Hightower. Asking if she can get that refill too or if she needs to contact PCP? Requested Prescriptions Pending Prescriptions Disp Refills valACYclovir (VALTREX) 1 gram tablet 21 tablet 0 Sig: Take 1 tablet by mouth three times a day for 7 days. norgestimate 0.25 mg-ethinyl estradiol 35 mcg 0.25-35 mg-mcg per tablet 84 tablet 0 Sig: Take 1 tablet by mouth once daily. Marissa Mejia RN documented in this encounter [facility] 05-09-2024 Telephone encounter Note RX sent. Payal Juarez APRN.WRAPPER SHEETER [facility] 05-09-2024 Telephone encounter Note Annual scheduled for 05/23/24. Patient asking for refill prior to then of OCP. Also she is asking if she can get valacyclovir refill? 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 It has been many many years since last outbreak with it, but she has been under a lot of stress lately. This was previously given to her by PCP- last was 03/31/[address] Hightower. Asking if she can get that refill too or if she needs to contact PCP? Requested Prescriptions Pending Prescriptions Disp Refills valACYclovir (VALTREX) 1 gram tablet 21 tablet 0 Sig: Take 1 tablet by mouth three times a day for 7 days. norgestimate 0.25 mg-ethinyl estradiol 35 mcg 0.25-35 mg-mcg per tablet 84 tablet 0 Sig: Take 1 tablet by mouth once daily. Marissa Mejia RN 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 Maliha is a 37 year old who presents for an annual gynecologic exam without complaints. Menses: cycles every 28 days and 3 days of flow. Contraception: combined hormonal contraceptives HPV vaccine: Yes Last Pap: 01/04/2018 normal HPV: 01/03/2018 negative History of abnormal pap: No Last mammogram: never Sexually active: Yes History of STDS: chlamydia Patient concerns for STD exposure: No. 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 History LMP: 03/16/2023 (Approximate), Unknown Age at Menarche: Age at First : Age at Menopause: Senior Data Integration Developer History Comments: Sexual Activity: Yes; Male Contraception: Pill PAST MEDICAL HISTORY Diagnosis Date Allergic rhinitis, cause unspecified Asthma athletic childhood asthma Chiari I malformation ([facility]) 05/08/14 Chlamydia 2010 Enlarged pituitary gland ([facility]) 04/17/2014 Unspecified asthma(493.90) PAST SURGICAL HISTORY Procedure Laterality Date ANESTH, SECTION DELIVERY ONLY 03/09/2015 Primary C/S for Chiari I Malformation DELIVERY ONLY 11/23/2017 DELIVERY ONLY 01/10/2021 [facility] FAMILY HISTORY Adopted: Yes Problem Relation Age of Onset Hypertension Mother Heart Father atrial fib Breast Cancer Maternal Grandmother Heart Maternal Grandmother Hypertension Maternal Grandfather Heart Paternal Grandmother Hypertension Paternal Grandmother other (Celina Gehrig disease) Paternal Grandfather other (MS) Paternal Aunt other (MS) Paternal Uncle SOCIAL HISTORY Social History Tobacco Use Smoking status: Never Smokeless tobacco: Never Vaping Use Vaping Use: Never used Substance Use Topics Alcohol use: Yes Comment: socially, not while Drug use: No REVIEW OF SYSTEMS Abdomen: No abdominal pain, nausea, vomiting, diarrhea, or constipation. No bloating, early satiety, indigestion, or increased flatulence. Bladder: No dysuria, gross hematuria, urinary frequency, urinary urgency, or incontinence. Breast: No breast lumps, nipple d/c, overlying skin changes, redness or skin retraction. Allergies and current medication updated:Yes EXAM: BP 112/68 Ht 5' 6.73 (1.70m) Wt 160 lb 3.2 oz (72.7kg) LMP 03/16/2023 BMI 25.29 kg/(m^2). GENERAL: pleasant, female in no apparent distress HEENT: Normocephalic, atraumatic, mucus membranes moist, and no lesions NECK: Supple, full range of motion, no adenopathy, and thyroid normal DERMATOLOGY: Normal, without lesions, non-icteric, and non-hirsute BREAST: soft, non-tender, symmetric, no dominant mass, normal nipple-areolar complex, no lymphadenopathy, and no nipple discharge CHEST: Normal inspiratory effort ABDOMEN: soft, non-tender, and no masses PELVIC: external genitalia normal, normal Bartholin's glands, urethra, [place]'s glands, no vulvar lesions, no cervical lesions, good vaginal support, physiologic discharge present, normal appearing perineal body and perianal region BIMANUAL: uterus normal size, shape and consistency, no adnexal masses, and non-tender RECTOVAGINAL: deferred. NEURO: alert and oriented x3,exam grossly non-focal EXTREMITIES: normal ASSESSMENT/PLAN: 1) Health maintenance: Pap done with HPV. Mammogram starting age 40. Nutrition, exercise and routine health maintenance exams reviewed. HPV vaccine: completed series 2) Contraception: combined hormonal contraceptives. Contraceptive options reviewed and information provided. 3) STD screening: Declined STD check. 4) Follow up one year or sooner as needed Stacey Boss APRN.WRAPPER SHEETER documented in this encounter [facility] 03-20-2023 Miscellaneous Notes Has annual on 04/13/23 Patient has been identified by name and date of : Yes Last office visit in this department: 02/04/2020 RX INSTRUCTIONS: Patient aware RX will be sent to pharmacy. No need to notify patient. Patient phones requesting refills as follows: Requested Prescriptions Pending Prescriptions Disp Refills norgestimate 0.25 mg-ethinyl estradiol 35 mcg 0.25-35 mg-mcg per tablet 84 tablet 0 Sig: Take 1 tablet by mouth once daily. Please review and advise. Maddy Taylor documented in this encounter [facility] 10-05-2022 Miscellaneous Notes Patient has been identified by name and date of : Yes Last office visit in this department: 02/04/2020 RX INSTRUCTIONS: Patient aware RX will be sent to pharmacy. No need to notify patient. Patient phones requesting refills as follows: Requested Prescriptions Pending Prescriptions Disp Refills norgestimate 0.25 mg-ethinyl estradiol 35 mcg (SPRINTEC, ORTHO-CYCLEN) 0.25-35 mg-mcg per tablet 84 tablet 0 Sig: Take 1 tablet by mouth once daily. Please review and advise. Natalya Carpenter Pss documented in this encounter [facility] 10-02-2022 Miscellaneous Notes PSS- Please contact patient and assist with scheduling annual exam. Last seen for PP visit on 02/21/21. Requested Prescriptions Pending Prescriptions Disp Refills norgestimate 0.25 mg-ethinyl estradiol 35 mcg (SPRINTEC, ORTHO-CYCLEN) 0.25-35 mg-mcg per tablet [Pharmacy Med Name: NORG-ETHIN ESTRA 0.25-0.035 MG] 84 tablet 0 Sig: take 1 tablet by mouth once daily Sri Wray RN documented in this encounter [facility] 12-20-2020 History of Past i llness Narrative Problem Noted Date Resolved Date Positive GBS test 12/20/2020 01/17/2021 Rubella non-immune status, antepartum 08/17/2017 01/01/2018 Group B Streptococcus carrier, antepartum 201601/01/2018 History of delivery 04/02/2017 Overview: 04/02/2017Pt had a previous C section in [place] under general anesthesia due to Chiari [address] [place]. She desires a repeat C section . Does not wish for tubal ligation.Discussed MFM services here in [place]. TKRN Supervision of normal first 07/30/2014 04/21/2015 ASTHMA UNSPECIFIED 04/21/2015 ALLERGIC RHINITIS NOS 04/21/2015 documented as of this encounter (statuses as of 10/02/2022) [facility] History of Past illness Narrative* Problem Noted Date Resolved Date Positive GBS test 12/20/2020 01/17/2021 Rubella non-immune status, antepartum 08/17/2017 01/01/2018 Group B Streptococcus carrier, antepartum 201601/01/2018 History of delivery 04/02/2017 Overview: 04/02/2017Pt had a previous C section in [place] under general anesthesia due to Chiari [address] North. She desires a repeat C section . Does not wish for tubal ligation.Discussed MFM services here in [place]. TKRN Supervision of normal first 07/30/2014 04/21/2015 ASTHMA UNSPECIFIED 04/21/2015 ALLERGIC RHINITIS NOS 04/21/2015 documented as of this encounter (statuses as of 10/05/2022) [facility] History of Past illness Narrative* Problem Noted Date Diagnosed Date Resolved Date Positive GBS test 12/20/2020 01/17/2021 Rubella non-immune status, antepartum 08/17/2017 01/01/2018 Group B Streptococcus carrier, antepartum 05/01/2017 01/01/2018 History of delivery 04/02/2017 01/17/2021 Overview: 04/02/2017Pt had a previous C section in [place] under general anesthesia due to Chiari [address] North. She desires a repeat C section . Does not wish for tubal ligation.Discussed MFM services here in [place]. TKRN Supervision of normal first 07/30/2014 04/21/2015 ASTHMA UNSPECIFIED 5 ALLERGIC RHINITIS NOS 2014 documented as of this encounter (statuses as of 03/27/2023) [facility] History of Past illness Narrative* Problem Noted Date Diagnosed Date Resolved Date Positive GBS test 12/20/2020 01/17/2021 Rubella non-immune status, antepartum 08/17/2017 01/01/2018 Group B Streptococcus carrier, antepartum 05/01/2017 01/01/2018 History of delivery 04/02/2017 01/17/2021 Overview: 04/02/2017Pt had a previous C section in [place] under general anesthesia due to Chiari [address] North. She desires a repeat C section . Does not wish for tubal ligation.Discussed MFM services here in [place]. TKRN Supervision of normal first 07/30/2014 04/21/2015 ASTHMA UNSPECIFIED 5 ALLERGIC RHINITIS NOS 2014 documented as of this encounter (statuses as of 04/14/2023) [facility] Diagnosis Encounter for gynecological examination without abnormal finding- Primary Routine gynecological examination Encounter for screening for malignant neoplasm of cervix Screening for malignant neoplasm of the cervix Special screening examination for human papillomavirus (HPV) Surveillance for control, oral contraceptives Surveillance of previously prescribed contraceptive pill [facility] Diagnosis Surveillance for control, oral contraceptives Surveillance of previously prescribed contraceptive pill [facility] Diagnosis Surveillance for control, oral contraceptives Surveillance of previously prescribed contraceptive pill [facility] Diagnosis Encounter for gynecological examination (general) (routine) without abnormal findings- Primary Surveillance for control, oral contraceptives Surveillance of previously prescribed contraceptive pill [facility] Diagnosis Wellness examination- Primary Palpitations Screening for lipid disorders [facility] Diagnosis Palpitations- Primary Anxiety with depression Screening for depression Encounter for screening examination for other mental health and behavioral disorders documented [facility] Diagnosis Vaginal discharge- Primary Leukorrhea, not specified as infective [facility] Diagnosis SVT (supraventricular tachycardia) (HCC)- Primary Other specified cardiac dysrhythmias documented in this encounter [facility] Summary Purpose Family History No Family History Records FoundNo Family History Records Found Advance Directives No Advanced Directives Records FoundNo Advanced Directives Records Found Additional Source Comments Source Comments (unrecognize d section and content) In the event this informatio n is protected by the Federal Confidentiality of Alcohol and Drug Abuse Patient Records regulations: The Federal rules restrict any use of the information to criminally investigate or prosecute any alcohol or drug abuse patient.[facility] the event this information is protected by the Federal Confidentiality of Alcohol and Drug Abuse Patient Records regulations: The Federal rules restrict any use of the information to criminally investigate or prosecute any alcohol or drug abuse patient.[facility] the event this information is protected by the Federal Confidentiality of Alcohol and Drug Abuse Patient Records regulations: The Federal rules restrict any use of the information to criminally investigate or prosecute any alcohol or drug abuse patient.[facility] the event this information is protected by the Federal Confidentiality of Alcohol and Drug Abuse Patient Records regulations: The Federal rules restrict any use of the information to criminally investigate or prosecute any alcohol or drug abuse patient.[facility] the event this information is protected by the Federal Confidentiality of Alcohol and Drug Abuse Patient Records regulations: The Federal rules restrict any use of the information to criminally investigate or prosecute any alcohol or drug abuse patient.[facility] the event this information is protected by the Federal Confidentiality of Alcohol and Drug Abuse Patient Records regulations: The Federal rules restrict any use of the information to criminally investigate or prosecute any alcohol or drug abuse patient.[facility] the event this information is protected by the Federal Confidentiality of Alcohol and Drug Abuse Patient Records regulations: The Federal rules restrict any use of the information to criminally investigate or prosecute any alcohol or drug abuse patient.[facility] the event this information is protected by the Federal Confidentiality of Alcohol and Drug Abuse Patient Records regulations: The Federal rules restrict any use of the information to criminally investigate or prosecute any alcohol or drug abuse patient.[facility] the event this information is protected by the Federal Confidentiality of Alcohol and Drug Abuse Patient Records regulations: The Federal rules restrict any use of the information to criminally investigate or prosecute any alcohol or drug abuse patient.[facility] the event this information is protected by the Federal Confidentiality of Alcohol and Drug Abuse Patient Records regulations: The Federal rules restrict any use of the information to criminally investigate or prosecute any alcohol or drug abuse patient.[facility] the event this information is protected by the Federal Confidentiality of Alcohol and Drug Abuse Patient Records regulations: The Federal rules restrict any use of the information to criminally investigate or prosecute any alcohol or drug abuse patient.[facility] CenterIn the event this information is protected by the Federal Confidentiality of Alcohol and Drug Abuse Patient Records regulations: The Federal rules restrict any use of the information to criminally investigate or prosecute any alcohol or drug abuse patient.[facility] CenterIn the event this information is protected by the Federal Confidentiality of Alcohol and Drug Abuse Patient Records regulations: The Federal rules restrict any use of the information to criminally investigate or prosecute any alcohol or drug abuse patient.[facility] Reason for Visit (unrecogniz ed section and content) Reason Comments Refill Request Reason Onset Date Comments Refill Request 10/05/2022 Reason Onset Date Comments Refill Request 03/20/2023 Reason Onset Date Comments Yearly Exam 04/13/2023 Reason Comments Medication Request Reason Comments Well Woman Reason Comments Palpitations Reason Comments Acute Visit Heart palpitations Reason Comments Vaginal Problem Reason Onset Date Comments Results 11/28/2024 Care Teams (unrecognized sec tion and content) Credit Rating Inspector Relationship Specialty Start Date End Date Cee Guerra MD [address] [place] [address] PCP - General Family Medicine 08/03/21 Credit Rating Inspector Relationship Specialty Start Date End Date Cee Guerra MD [address] [place], [place] [id number] PCP - General Family Medicine 08/03/21 Credit Rating Inspector Relationship Specialty Start Date End Date Cee Guerra MD [address] [place], [place] [address] PCP - General Family Medicine 08/03/21 Credit Rating Inspector Relationship Specialty Start Date End Date Cee Guerra MD [address] [place] [address] PCP - General Family Medicine 08/03/21 Credit Rating Inspector Relationship Specialty Start Date End Date Cee Guerra MD [address] [place] [address] PCP - General Family Medicine 08/03/21 Credit Rating Inspector Relationship Specialty Start Date End Date Cee Guerra MD [address] [place] [address] PCP - General Family Medicine 08/03/21 Credit Rating Inspector Relationship Specialty Start Date End Date Cee Guerra MD [address] [place] [address] PCP - General Family Medicine 08/03/21 Felicita Virgen APRN.WRAPPER SHEETER [address] [place] [address] [employer]her Operator Family Medicine 08/03/24 Miguel Mireles APRN.WRAPPER SHEETER [address] [place] [address] [employer] Crusher Operator Family Medicine 08/12/24 Credit Rating Inspector Relationship Specialty Start Date End Date Cee Guerra MD [address] [place] [address] PCP - General Family Medicine 08/03/21 Felicita Virgen APRN.WRAPPER SHEETER [address] [place] [address] [employer] Crusher Operator Family Medicine 08/03/24 Miguel Mireles APRN.WRAPPER SHEETER [address] [place] [address] [employer] [facility] 08/12/24 Credit Rating Inspector Relationship Specialty Start Date End Date Cee Guerra MD [address] [place], [place] [id number] PCP - General Family Medicine 08/03/21 Miguel Mireles APRN.WRAPPER SHEETER [address] [place], [place] [address] Coal Crusher Operator Family [facility] 08/12/24 Credit Rating Inspector Relationship Specialty Start Date End Date Cee Guerra MD [address] [place], [place] [address] PCP - General Family Medicine 08/03/21 Miguel Mireles APRN.WRAPPER SHEETER [address] [place], [place] [address] [facility] 08[facility]24 Credit Rating Inspector Relationship Specialty Start Date End Date Cee Guerra MD [address] [place], [place] [id number] PCP - General Family Medicine 08/03/21 Felicita Virgen APRN.WRAPPER SHEETER [address] [place] [address] [facility] 08/03/24 01/07/25 Miguel Mireles APRN.WRAPPER SHEETER [address] [place], [place] [address] [facility] 08/12/24 INFORMATION SOURCE (unrecogn ized section and content) DATE CREATED AUTHOR 01/11/[address] [facility] DATE CREATED AUTHOR 'S SHANEKA REID 02/03/2025 [facility] FOR RECORDS PERTAINING TO PATIENTS WHO ARE OR HAVE BEEN ENROLLED IN A CHEMICAL DEPENDENCY/SUBSTANCEABUSE PROGRAM, SOME INFORMATION MAY BE OMITTED. This clinical summary was aggregated from multiple sources. Caution should be exercised in using it in the provision of clinical care. This summary normalizes information from multiple sources, and as a consequence, information in this document may materially change the coding, format and clinical context of patient data. In addition, data may be omitted in some cases. CLINICAL DECISIONS SHOULD BE BASED ON THE PRIMARY CLINICAL RECORDS. [facility]. provides no warranty or guarantee of the accuracy or completeness of information in this document.
== END | disposition home or self-care (01) ==
LOC: LABSPEC 07:20
PROVIDERS: Visit Provider Physician Assistant
DX: R30.0 Dysuria (principal)
CPT/HCPCS: 87077; 87086; 87088; 87186